=== PATIENT | female | born 1945 | race Caucasian/White ===

== ENCOUNTER → 2019-07-12 13:48 | Outpatient (CLI) | payer OTHER, SELFPAY ==
--- NOTE | 2019-07-12 13:49 | DI.CT.S_ITS ---
PROCEDURE: CT LUMBAR SPINE WO CON INDICATIONS: Hardware loosening status post fusion TECHNIQUE: Noncontrast 3 mm thick sections acquired from the T12 level to the sacrum. Sagittal and coronal reformats were constructed. For radiation dose reduction, the following was used: automated exposure control. COMPARISON: [facility], CT, T-SPINE WITH CONTRAST, 12/20/2014, 11:08. [facility], XA, SPINE INJ FOR CT MYELOGRAM XA, 12/20/2014, 10:34. FINDINGS: Image quality: Excellent. Bones: There is normal bony alignment. No acute vertebral body compression fractures. No suspicious lytic or blastic bony lesions. Central spinal caliber is of normal overall caliber. No pars defects. Note is made of a right-sided control device overlying the sacroiliac joint level on the right, with control leads extending cephalad and one of these leads can be seen entering the spinal canal at the dorsal midline seen centered on series 2 image 8. T12-L1: Mild degenerative disc height reduction is seen posteriorly, with very slight grade 1 retrolisthesis of T12 on L1. Mild facet osteoarthritis. L1-L2: Minimal degenerative disc height reduction posteriorly, without subluxation. Mild facet osteoarthritis. L2-L3: Appreciable and significant interval worsening of degenerative disc disease with grade 2 anterolisthesis having developed since 12/20/14 at this level. What appears to be a small degree of ostiolysis is associated with the intervertebral disc disease, where adjacent sclerosis involving the lower third of the vertebral body of L2 and the upper half of the vertebral body of L3 is present. An intervertebral disc prosthesis likely is present at this disc level. This represents the upper most aspect of a spinal fusion device comprised of transverse pedicle screws and vertical fixation rods bilaterally crossing L2-L3. Moderately severe to severe facet osteoarthritis. Dorsal spinal pain control electrode leads and control device as discussed. These are relatively poorly visualized by the current study but along the course of the leads a definite lead fracture is not seen. Only one of 2 leads can be seen entering the spinal canal, and the full course of these leads is not included in the study. L3-L4: The degenerative disc disease at this level is near severe with near [id number]-[id number] articulation between the adjacent endplates. Very slight anterolisthesis of L3 is present on L4, grade 1. Mild facet osteoarthritis. L4-L5: Degenerative disc disease is mild, subluxation is not present. Mild facet degeneration. L5-S1: Degenerative disc disease is moderately severe, with near [id number] articulation between adjacent endplates. No subluxation. Moderate facet osteoarthritis. Soft tissues: No retroperitoneal masses or hematomas. Visualized aorta is normal in caliber. IMPRESSION: The degenerative disc disease and facet osteoarthritis along the lumbosacral spine overall is moderately severe and most pronounced at L2-L3. Spinal and foraminal stenosis would be expected as a result. Multilevel radiculopathy also likely is present. Dictated by: Lui Ramirez M.D. on 07/12/2019 at 15:27 Approved by: Lui Ramirez M.D. on 07/12/2019 at 15:35
== END ==
PROVIDERS: PCP Family Medicine; Visit Provider Physical Medicine & Rehabilitation
DX: T84.218A Breakdown (mechanical) of internal fixation device of other bones, initial encounter (principal); M47.27 Other spondylosis with radiculopathy, lumbosacral region; M47.26 Other spondylosis with radiculopathy, lumbar region; M51.16 Intervertebral disc disorders with radiculopathy, lumbar region; M51.17 Intervertebral disc disorders with radiculopathy, lumbosacral region; M21.372 Foot drop, left foot; Z98.1 Arthrodesis status
CPT/HCPCS: 72131

== ENCOUNTER → 2019-09-01 10:38 | Outpatient (CLI) | payer OTHER, SELFPAY ==
--- NOTE | 2019-09-01 | DI.NM.S_ITS ---
PROCEDURE: NM BONE 3 PHASE RADIOPHARMACEUTICAL: 20 mCi Tc-99m MDP IV. INDICATIONS: Lumbar pseudarthrosis TECHNIQUE: Multiple bone scintigrams were obtained after intravenous injection of Tc-99m MDP, including flow, blood pool, and delayed images centered to the region of interest. COMPARISON: [facility], CT, CT LUMBAR SPINE WO CON, 07/12/2019, 13:51. [facility] [place], CR, XR LUMBAR SPINE 2 OR 3 VIEWS, 08/18/2019, 14:56. FINDINGS: A triple phase bone scan was obtained including flow, blood pool and delayed images. The flow and blood for images demonstrate normal vascularity. Delayed images demonstrate foci of increased uptake in lumbar spine, correlating with degenerative and postsurgical changes seen on radiographs and CT. The comparison CT also shows lucency around the right superior L2 pedicle, suspicious for loosening. IMPRESSION: 1. Foci of increased uptake in lumbar spine are consistent with degenerative and postsurgical changes. 2. There is lucency around the right L2 pedicular screw on the comparison CT, concerning for prosthesis loosening. Dictated by: Kaykay Galaviz M.D. on 09/01/2019 at 16:33 Approved by: Kaykay Galaviz M.D. on 09/01/2019 at 18:27
== END ==
PROVIDERS: Family Provider Family Medicine; PCP Family Medicine; Visit Provider Orthopaedic Surgery
DX: M96.0 Pseudarthrosis after fusion or arthrodesis (principal)
CPT/HCPCS: 78315; A9503

== ENCOUNTER → 2019-09-21 10:12 | Outpatient (CLI) | payer OTHER, SELFPAY ==
[2019-09-21 11:01] LABS: Add Manual Diff / Slide Review NO; Basophils Absolute Auto 100 /uL (0-100); Basophils Percent Auto 0.9 % (0-2); Eosinophils Absolute Auto 200 /uL (0-450); Eosinophils Percent Auto 3.7 % (2-4); Hematocrit 37.9 % (36-46); Hemoglobin 12.9 g/dL (12.0-16.0); Lymphocytes Absolute Auto 1800 /uL (1100-4500); Lymphocytes Percent Auto 29.2 % (25-40); Mean Corpuscular HGB Conc 33.9 % (30-36); Mean Corpuscular Hemoglobin 31.8 PG (26-34); Mean Corpuscular Volume 93.8 fL (80-100); Monocytes Absolute Auto 500 /uL (0-900); Monocytes Percent Auto 8.1 % (3-14); Neutrophils Absolute Auto 3600 /uL (1500-7000); Neutrophils Percent Auto 58.1 % (50-75); Platelet Count 330 X10^3/uL (150-400); Red Blood Cell Count 4.04 X10^6/uL (4.0-5.2); Red Cell Distribution Width 12.8 % (11.6-14.8); White Blood Cell Count 6.2 X10^3/uL (4.5-11.0)
[2019-09-21 11:16] LABS: Blood Urea Nitrogen 18 mg/dL (7-17)
== END ==
PROVIDERS: Family Provider Family Medicine; PCP Family Medicine; Visit Provider Orthopaedic Surgery
DX: Z01.818 Encounter for other preprocedural examination (principal); Z01.812 Encounter for preprocedural laboratory examination; R79.89 Other specified abnormal findings of blood chemistry
CPT/HCPCS: 36415; 84520; 85025; 93005

== ENCOUNTER 2019-11-25 06:13 | Inpatient (IN) | payer MEDICARE, SELFPAY ==
[2019-10-25 08:10] VITALS: BMI 29.6
[2019-11-25] VITALS (16 sets, daily range): BP systolic 97–127; BP diastolic 53–76; PULSE 61–77; RESP 12–16; TEMP 35.5–36.5; O2SAT 92–97; BMI 29.6; BMI 28.8
--- NOTE | 2019-11-25 | DI.RAD.S_ITS ---
PROCEDURE: XR LUMBAR SPINE 2-3V INDICATIONS: L2-5 TLIF TECHNIQUE: 2 views of the lumbar spine were acquired. COMPARISON: None. FINDINGS: Bones: Digital acquisition imaging shows fusion procedure dorsally to have been performed crossing from L2-L5, and also a wide anterior intervertebral disc prosthesis appears present between L2 and L3 with a more conventional appearing cage disc prosthesis between L4 and L5. Soft tissues: Overlying bowel gas pattern is normal. No suspicious soft tissue calcifications. IMPRESSION: Normal alignment established postoperatively. Normal device positioning. Dictated by: Lui Ramirez M.D. on 11/25/2019 at 14:37 Approved by: Lui Ramirez M.D. on 11/25/2019 at 14:38
[2019-11-25] MEDS: LACTATED RINGERS 1,000 ML 42 ML IV ×3 (07:08→12:52)
--- NOTE | 2019-11-25 07:36 | PM.PREOP ---
Pre-operative Note Interval Note History & Physical reviewed/Exam performed by Physician: Yes Changes to H&P: No H&P completed within 30 days and has changed as indicated here:: We had a problem with her spinal cord stimulator not working, contact the rep, and just replaced the controller batteries and confirmed that it has been turned off. OK to proceed.
[2019-11-25] MEDS: MIDAZOLAM 2 MG/2 ML VIAL IV (07:43)
[2019-11-25] MEDS: CLINDAMYCIN 900 MG/50 ML PIGGYBACK 50 MG IV ×3 (07:45→23:44)
--- NOTE | 2019-11-25 07:46 | SUR.PREOP ---
Dr. Morales made aware of rings, sores to upper back, spinal stimulator. Dr. Morales worked with [employer] rep, stimulator off now per pt. Midazolam 2mg IV given per Dr. Benavides's instruction prior to pt leaving for OR.
--- NOTE | 2019-11-25 08:37 | SUR.OPER ---
Right lateral on padded OR table. Head on pillow, gel axillary roll, pillow to support left arm. Legs flexed, pillows between legs, gel pad under down leg and ankle. Multiple passes of 3 inch cloth tape across shoulder, hip, upper and lower legs to secure patient on OR table.
[2019-11-25] MEDS: VANCOMYCIN 1,000 MG VIAL 1000 MG TOP (09:06)
[2019-11-25] MEDS: SODIUM CHLORIDE 0.9% 1,000 ML, GENTAMICIN 80 MG IRR (09:07)
[2019-11-25] MEDS: BUPIVACAINE 0.5% (PF) 4 ML, MORPHINE-PF 4 MG, BUTORPHANOL 1 MG, fentaNYL 100 MCG INJ (09:41)
[2019-11-25] MEDS: THROMBIN (RECOMBINANT) 5,000 UNIT VIAL 5000 UNIT TOP (09:43)
[2019-11-25] MEDS: ACETAMINOPHEN IV 1,000 MG/100 ML VIAL 400 MG IV (13:00)
--- NOTE | 2019-11-25 13:15 | P.OP_ITS ---
Operative Date/Time/Diagnoses Date of procedure: 11/25/19 Time of procedure: 13:15 Pre-op diagnosis: Lumbar stenosis with radiculopathy Lumbar spondylolisthesis Lumbar pseudoarthrosis Procedure & Clinicians Procedure: L2-3 anterior cage removal L2-3 posterior screw removal L2-3 anterior instrumented fusion with cage L2-3 posterior instrumented fusion L4-5 TLIF (posterior/posterior interbody fusion) with cage L2, L3, L4, L5 screws Iliac crest bone graft aspirate Same procedure as scheduled: Yes Indications: [age] year old female with intractable pain from stenosis and pseudoarthrosis. They had failed conservative management and requested operative intervention. Risks and benefits of surgery were discussed and appropriate consents were obtained. Surgeon: Arthur Morales Research Programmer: Fredy Stover Anesthesia Type: General Operative Notes Findings: None Closure Type: primary Specimen(s): none sent Prosthetic devices, grafts, tissues, transplants, or devices: NuVasive MAS Reline screws and XLIF 15 deg cage Globus Rise cage Applied: catheter Estimated Blood Loss (mL): 200 Blood products transfused: none Procedure in detail: Patient was brought to the operating room and intubated on the table. Time-out was performed. They were then rolled over to the lateral decubitus position with the [id number]. Thhey were taped down in the correct position. X-rays were taken to confirm a true AP and lateral. Preoperative antibiotics were given. The left flank and back was prepped and draped in standard sterile fashion. We started with our posterior screw removal so that we would be able to mobilize anteriorly. Using fluoroscopy, we made 4 cm incisions on the back over her old L2 and L3 screws. Bovie used to come down to an dissect through the scar and muscle until we came down to the hardware. The screws were exposed. The screws were removed. The wounds were irrigated and loosely reapproximated. Using fluoroscopy, a 3 cm incision was made above the iliac crest. We bluntly dissected down with Metzenbaum scissors and split the 3 abdominal muscle layers. We dissected out the retroperitoneal space and using finger guidance, brought our 1st dilator down to the psoas muscle. Using neuromonitoring and fluoroscopy, we placed it through the psoas onto the L2-3 disc space in an anterior position and gradually pulled the dilator posteriorly along the disc space. We placed our guidewire and measured our depth for the retractor. We then dilated with the next 2 dilators and then placed our retractor over the dilators. Position was confirmed with fluoroscopy and the retractor was locked down to the bar. We opened up the retractor and checked with neuro monitoring. We then placed the niko and again checked with neuro monitoring. The retractor was opened fu rther and the ALL retractor was placed. An annulotomy was performed. We began using pituitaries to remove the disc tissue until we came down to her nonunion and old TLIF cage. This was loose but somewhat encased in bone. However there was a definite pseudarthrosis. We used a osteotome to break up some of the bony fragments. We continued working around until we were able to place a hook around the cage. It would not slide around forward. We then slid the hook between the endplate at and the cage and hooked it around into the cage and brought it up out of the disc space. We then prepped our disc with a Simon to go across and release the lateral annulus. We used box osteotome to remove the previous scar tissue and a ring curette to clear this out. We trialed and then placed a 15 degree XLIF Modulus titanium cage packed with Osteocel bone graft for the anterior fusion at L2-3. We were able to get very good correction of her lordosis as well as some listhesis correction. The wound was irrigated. The retractor was closed down and the Niko was removed. We removed the retractor under direct visualization to make sure there was no neurovascular or abdominal injury. Final x-rays were taken. The muscle fascia was closed. Superficial skin were closed. Sterile dressings were placed over her wounds. She was then rolled over onto the well-padded prone position on the Supa table. The posterior dressing was removed and the back was prepped and draped in the standard sterile fashion. We used fluoroscopy and extended our incisions down to L4 bilaterally. Bovie used to split the fascia. We then used neural monitoring and fluoroscopy to place our Jamshidi needles down the right pedicles of L2, L3, L4 and L5. We used a new screw path at L2 as the old screw had been anterior and superior. L3 with the same old hole and then new holes at the bottom 2 levels. These were changed to guidewires. We placed the screws at L4 and L5 and opened up the MAS retractor. We used Bovie to clear off the soft tissue from the lamina and out the gutters to expose the transverse processes. The processes were decorticated with a bur. We then brought in the microscope. A laminectomy was performed at L4-5 with a bur and Kerrison rongeurs. We carefully depressed the dura to reach to the opposite side and decompress the entire central canal. We cleared out the neural foramen. In the end the ball probe could be placed cephalad and caudally across to the opposite side in the foramen and everything was opened. We then retracted the dura medially and used bipolar for hemostasis. An annulotomy was performed. We then performed complete diskectomy with paddles, Etienne, curettes, and pituitaries. The Osteocel bone graft was placed into the disc space. We then placed our globus Rise cage and expanded under fluoroscopy. This completed the posterior interbody portion of the TLIF at L4-5. An epidural catheter was primed with 4mL of 0.5% bupivacaine, 100 mcg fentanyl, 4 mg Duramorph, 1 mg Stadol. The dura was depressed under the cephalad lamina with a ball probe and the epidural catheter was gently advanced 6 cm cephalad. The wound was copiously irrigated. We placed the heads on the screws. We then tapped and placed our screws at L2 and L3. We oversized with a 7.5 mm screw at L3. We then measured and placed a chandni and locked it down. A small stab incision was made over the PSIS and a Jamshidi needle was placed into the iliac crest and several mL of bone marrow was aspirated. This was mixed with our locally harvested bone graft as well as the remaining Osteocel and placed in the posterolateral gutter for fusion at L2-3 and L4-5. The fascia was closed. The epidural was injected without resistance and then the catheter was removed. We further closed over the fascia. We then went to the left side. We extended the incision. We used Bovie to split the fascia. We then percutaneously placed Jamshidi needles down the left pedicles of L4 and L5. We used the previous screw holes at L2 and L3. We tapped and then placed screws on the left pedicles of L2 through 5. We used over size 7.5 mm screws at L2 and L3. We placed our chandni and locked down. The wound was irrigated. The fascia was closed. Vancomycin powder was placed in the wound. The superficial skin were closed. Sterile dressing was placed. The patient was then rolled over, extubated, brought to the recovery room with no complications. Please note that throughout the surgery we took care not to Bovie on the spinal cord stimulator or stimulator wires and took care to keep them well protected throughout. Complications: none Post-operative Condition: stable Disposition: PACU Plan for aftercare: Inpatient. Up with PT.
[2019-11-25] MEDS: LORazepam 2 MG/ML INJ 0.25 MG IV (13:58)
[2019-11-25] MEDS: HYDROMORPHONE 2 MG INJ IV ×2 (13:58→14:09)
--- NOTE | 2019-11-25 15:32 | PC.NURSE ---
Addendum entered by Placido Gomez R.N. 11/25/19 15:47: LATE ENTRY. 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 Original Note: PATIENT TO RM [facility] FROM [facility]. IS SLEEPY BUT AROUSABLE, SLOW TO RESPOND TO QUESTIONS. HER RESPONSES ARE APPROPRIATE. SHE IS EXTREMELY PALE, BUT PER REPORT THIS IS HER BASELINE PRE-OP. VSS, NOW WITH SBP 98/ WILL NEED CLOSE MONITORING. TURNED PATIENT TO OBSERVE SURGICAL DRSG WITH PACU NURSE AT BEDSIDE. DRSG 100% SATURATED AND STARTING TO POOL UNDER TEGADERM. RE-INFORCED WITH ABD PADS X2 AND LARGE TEGADERM X4. SAT 92-94% ON 2L/NC. RR 14. UPPER AIRWAY CONGESTED WITH INSTRUCTION TO DEEP BREATHE AND COUGH. LIPS VERY PUFFY AND SWOLLEN, NO RESPIRATORY DISTRESS, NO STRIDOR, NO DIFFICULTY SWALLOWING SIPS OF ROSHAN ESTHER WITHOUT DIFFICULTY. RT CALLED TO COME ASSESS PATIENT AND WORK WITH PATIENT ON I.S. RT NOTIFIED THAT PATIENT HAD TO BE SUCTIONED OF SOME BILE BY ANESTHESIA DURING CASE. DRAWING HAND VIKASH, WILL NOTIFY DR. KLEIN OF DRSG SATURATION, AND ASK HIM TO RE-VISIT PATIENT AFTER HIS NEXT CASE. REPORT GIVEN TO SNOW, PRIMARY NURSE; LIZZIE TENORIO, AND SHAYNA, DAY SHIFT CHARGE NURSE. LIZZIE TENORIO CALLED DOWN TO [facility] TO REQUEST H&H, SPOKE WITH Filemon CAMARENA WHO CAME UP TO SEE PATIENT. RT HAS ASSESSED PATIENT.
[2019-11-25] MEDS: LACTATED RINGERS 1,000 ML 125 ML IV (15:50)
--- NOTE | 2019-11-25 16:13 | PT-IP ANOTE ---
checked with nurse and stated that pt is not ready for PT. stated that pt is not doing too well and will not be ready until tomorrow. will check on pt tomorrow.
[2019-11-25] MEDS: GABAPENTIN 600 MG TABLET PO ×2 (17:29→20:52)
[2019-11-25] MEDS: OXYCODONE IR 5 MG TABLET 10 MG PO (18:41)
--- NOTE | 2019-11-25 20:29 | PC.NURSE ---
Patient is somnolent and sleepy but arouse to voice of nurse. Patient arrived to floor shortly prior to Shift change. During bedside report it was noted that patient's surgical dressing was saturated and pooling under tegaderm. Day nurse re-inforced drg with ABD pad and mult. tegaderm drg. Shadow drainage was noted on reinforced dressing. Provider was made aware of soiled/saturated surgical drg. PACU nurse Jaylin came to patients room to assess drg. went back down to surg. and informed Dr. Morales of drg. condition and relayed suggestions from this nurse about inquiring to perform a H/H lab as patient appears to look VERY pale. No action to be taken per Dr. Morales, only change drg. PACU nurse Melinda arrived to floor after trans. patient to a more visible room. Melinda changed drg. in room and immediately drg. was starting to show shadow drainage on drg. provider is aware of this and states he will see her in AM and order h/h labs. B/p was slightly hypotensive, PACU nurse states she was having similar b/p readings in PACU. Patient is resting peacefully in room, 97% on 3L NC, call placed to RT for aggressive IS teaching and an eval. Patient's drg. was checked at 2039 and was noted to be saturated again but not leaking. will cont. to monitor and re-enforce as needed. Call light w/ in reach, bed in low pos and alarm active.
[2019-11-25] MEDS: SENNOSIDES 8.6 MG TABLET 17.2 MG PO (20:52)
[2019-11-25] MEDS: ATORVASTATIN 20 MG TABLET PO (20:52)
[2019-11-25] MEDS: DOCUSATE 100 MG CAPSULE PO (20:52)
[2019-11-25] MEDS: HYDROMORPHONE 0.5 MG INJ IV (20:52)
[2019-11-25] MEDS: DULOXETINE 30 MG CAPSULE PO (20:52)
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
[2019-11-26] VITALS (19 sets, daily range): BP systolic 98–133; BP diastolic 45–57; PULSE 64–85; RESP 15–16; TEMP 36.4–37.4; O2SAT 84–98
[2019-11-26] MEDS: LACTATED RINGERS 1,000 ML 125 ML IV ×2 (02:02→08:51)
[2019-11-26] MEDS: OXYCODONE IR 5 MG TABLET 10 MG PO ×3 (03:52→12:31)
[2019-11-26] MEDS: hydrOXYzine pamoate 25 MG CAPSULE PO (05:00)
[2019-11-26] MEDS: PANTOPRAZOLE 20 MG TABLET PO (05:00)
[2019-11-26] MEDS: LEVOTHYROXINE 100 MCG TABLET PO (05:00)
[2019-11-26] MEDS: HYDROMORPHONE 0.5 MG INJ 0.2 MG IV ×2 (05:00→15:11)
[2019-11-26 06:20] LABS: Hematocrit 29.8 % (36-46); Hemoglobin 10.3 g/dL (12.0-16.0)
--- NOTE | 2019-11-26 08:12 | PM.PNPO.1 ---
Subjective Subjective Date Patient Seen: 11/26/19 Time Patient Seen: 08:12 Interval history: She is doing very well. Pain is about a 5/10. The pain down her right leg is much better, now it's only numbness. Her dressing has been soaking through and has had to have been changed a few times. Exam Vital Signs (past 8 hours): - 11/26/19 01:00 11/26/19 04:54 11/26/19 07:00 Temperature 99.3 F 97.7 F 99.2 F Pulse Rate 72 76 71 Respiratory Rate 16 16 16 Blood Pressure 115/54 L 133/53 L 98/50 L Pulse Oximetry 94 93 98 Oxygen Delivery Method Nasal Cannula Oxygen Flow Rate 3 Const Orientation: alert and oriented x3 Back/Spine/Pelvis Other: Moderate drainage on right side of dressing. 5/5 motor both lower extremities except for old unchanged left footdrop. Objective Labs Result Diagrams: 11/26/19 05:45 Labs: Laboratory Results - last 24 hr 11/26/19 05:45 Hgb 10.3 L Hct 29.8 L Assessment & Plan Post-op Postoperative Procedures: Procedures Operation Date: 11/25/19 07:45 Actual Procedures Side Surgeon p L2-3 and L4-5 revision instrumented fusion w/hardware removal and reinstru w/bone graft Arthur Morales MD She is doing very well. Mobilize today with physical therapy. Still having drainage from the right side of her back. This was quite bloody yesterday but seems to be slowing down. Quality VTE Deep Vein Thrombosis/Pulmonary Embolism Present on Admission: No
[2019-11-26] MEDS: GABAPENTIN 600 MG TABLET PO ×3 (08:51→21:54)
[2019-11-26] MEDS: DULOXETINE 30 MG CAPSULE PO ×2 (08:51→21:54)
[2019-11-26] MEDS: DOCUSATE 100 MG CAPSULE PO (08:51)
[2019-11-26] MEDS: allopurinoL 100 MG TABLET PO (08:52)
[2019-11-26] MEDS: MULTIVITAMIN 1 TABLET 1 TAB PO (08:52)
--- NOTE | 2019-11-26 09:02 | CM.DANOTE ---
Addendum entered by Xiao Beth R.N. 11/26/19 10:02: Spoke to Hector at [facility]. They mentioned that P.T. could potentially see patient Thursday or Thursday. Sending over prog notes, and H&P, along with face sheet. Original Note: DCP: Case received, EMR reviewed and met with patient. Introduced self and role. Was able to meet with patient to obtain baseline history regarding activity level and living situation. DCP assessment completed with information currently available. Patient is a 74 year old female who admitted yesterday morning to the care of the orthopedic team. PCP: Dr. Slaughter. Payer: confirmed: [employer] Medicare. Patient came to the hospital for a surgical procedure. She had lumbar surgery cage removal of L2-3. Patiet has history of intractable pain from stenosis. According to H&P, patient does have history of bowel and bladder incontinence. Met with patient in her room. She is currently on oxygen, but confirmed with her that she is not on home oxygen. She is alert and oriented, sitting up in bed. She will be working with P.T. today. Confirmed with patient that she is independent, drives. Stated that she has not used any DME supplies, but is borrowing a walking stick from family. Confirmed that she lives alone, but has a friend named Cinthia Alfonso that will be helping her out around the house. Patient also stated that her daughter, Zaina, will be coming up from [place] to help her as well. She is also involved in her evangelical, and they will be also helping out with prepared meals. Spoke to Dr. Morales this morning and stated that patient will benefit from home health, since she does not want to go to custodial. He already signed face to face. Met again with patient, gave her Medicare Choice List, but she has no preference on agencies, for she is not familiar with any of them. Let her know that this case manage can check on agencies to see what their turn around time. [facility] is not available on weekends. Will send agency over H&P. It is noted that [facility] is on case management's calendar for this week. Will contact them. P:DCP to continue to follow. Will send information over to [facility], and will follow up with phone call. Xiao Beth RN/Skinning Machine Feeder
[2019-11-26 09:24] LABS: Alanine Aminotransferase 18 IU/L (<35)
--- NOTE | 2019-11-26 09:53 | PT.IIE ---
Current Diagnoses Postlaminectomy syndrome, not elsewhere classified (11/25/19) Unspecified fracture of unspecified lumbar vertebra, subsequent encounter for fracture with nonunion (11/25/19) Arthrodesis status (11/25/19) Surgery Performed Operation Date: 11/25/19 07:45 Actual Procedures p L2-3 and L4-5 revision instrumented fusion w/hardware removal and reinstru w/bone graft - Arthur Morales MD Surgical History (Last Updated 10/27/19 @ 14:08 by Dorothea Corbin RN) History of fusion of cervical spine (Acute) History of lumbar spinal fusion (Acute ~1988) History of lumbar spinal fusion (Acute 11/30/17) S/P epidural steroid injection (Acute ~01/2019) S/P insertion of spinal cord stimulator (Acute) Status post lumbar and lumbosacral fusion by anterior technique (Chronic) Medical History (Last Updated 10/27/19 @ 14:28 by Dorothea Corbin RN) Acid reflux (Acute) Acquired left foot drop (Chronic) Depression (Acute) Gout (Acute) HLD (hyperlipidemia) (Acute) HTN (hypertension) (Acute) Hypothyroid (Acute) Lumbosacral spondylosis with radiculopathy (Chronic) Tremor of both hands (Acute) Physical Therapy Inpatient Evaluation/Re-Eval M1 PT/OT-IP Prior Functional Status Start: 11/26/19 11:26 Freq: NEEDED Status: Active Protocol: Document 11/26/19 09:53 AB (Rec: 11/26/19 11:41 AB [id number]) Medical Review Prior Functional Status Medical History Reviewed Yes Communication able to make needs known Mobility and Gait pt stated that she is independent with all mobilities and ambulation without AD Social History Household Members none Living Arrangements Apartment/Condo Number of Floors (Floors) Two Floors Number of Stairs To Enter/Railing? 1 step to enter 13 steps with L rail ascendig to bedroom level. Home Environment Standard Height Toilet,Tub/ Shower Home Equipment Hand Held Shower Employment Status Retired Additional Social History Comment stated that there is a caregiver that can assist her but only for a few hours a day stated that her apartment is small and a FWW will not fit in M2 PT-IP Current Condition Start: 11/26/19 11:26 Freq: NEEDED Status: Active Protocol: Document 11/26/19 09:53 AB (Rec: 11/26/19 11:41 AB [id number]) Physical Therapy Current Condition Current Condition Evaluation Date 11/26/19 Treatment Diagnosis s/p L2-3 ant/post fusion, L4-5 TLIF; difficulty in walking Onset Date 11/25/2019 Precautions Lumbar Precautions Log Roll,No Twisting,Limit Bending,Lifting Restriction of 10 lbs,Gait Belt above Incisional Area M3 PT-IP Subjective Start: 11/26/19 11:26 Freq: NEEDED Status: Active Protocol: Document 11/26/19 09:53 AB (Rec: 11/26/19 11:41 AB [id number]) Subjective Physical Therapy Visit Type Type Initial Evaluation Visit Start Time 09:53 Visit Stop Time 10:38 Total Visit Minutes 45 Number of DIRECTOR OF CARDIOPULMONARY SERVICES Visits 0 Physical Therapy Visit Comments Patient Comments pt agreeable to do PT Therapy Pain Assessment Pain When Pain Assessed At Rest Pain Present Pain Present Pain Reported Location Right Leg Intensity 3 Scale Used Numeric (1 - 10) Pain Management Techniques Re-positioning,Timing of Activity with Medications M4 PT-IP Mobility and Gait Start: 11/26/19 11:26 Freq: NEEDED Status: Active Protocol: Document 11/26/19 09:53 AB (Rec: 11/26/19 11:41 AB [id number]) PT-Bed Mobility Assessment Rolling Type of Rolling Log Rolling Level of Assist Standby Assistance Supine to Sit Supine to Sit Standby Assistance PT-Transfer Assessment Sit to and From Stand Sit to and from Stand Minimal Assistance,Moderate Assistance,1 Person Assistance ,Use of Upper Extremities Equipment Transfer Assistive Device Gait Belt,Front Wheeled Walker Transfers Transfer Destination Chair Transfer Technique ambulated using FWW Transfer Ability Level of Assist Minimal Assistance,Moderate Assistance,1 Person Assistance ,Use of Upper Extremities Comments Mobility Comments reviewed back precautions and log roll bed mobility with pt. BP supine: 99/53. pt completed bed mobility supine to sit SBA and cues for techniques. no complaints of dizziness/headache/nausea. BP : 101/55. pt completed sit to stand min to mod A and cues. cued to activate L quads. pt with slight knee bend on L during standing. ambulated in room using FWW ~ 30 ft min to mod A and cues. pt agreed to sit up on chair. positioned on chair. call light and table placed within reach. Gait Assessment Gait Gait Assistance Required: Minimum Assistance,Moderate Assistance,1 Person Assist Distance (Feet) 30 Able to Maintain Weight Bearing Status Yes During Gait Assistive Devices Assistive Device Gait Belt,Front Wheeled Walker Orthotic/Prosthetic Devices or Brace: No Gait Deviations General Gait Pattern Antalgic,Decreased Stride Length,Decreased Feet Clearance Factors Limiting Gait Function Factors Limiting Gait Function Decreased Activity Tolerance, Decreased Strength,Limited Range of Motion,Pain,Poor Balance,Poor Safety Awareness PT-Balance Assessment Sitting Balance and Reactions Static Sitting Balance Ability Good Dynamic Sitting Balance Ability Good Standing Balance and Reactions Static Standing Balance Ability Fair Dynamic Standing Balance Ability Fair Device Used FWW M5 PT-IP Objective Assessments Start: 11/26/19 11:26 Freq: NEEDED Status: Active Protocol: Document 11/26/19 09:53 AB (Rec: 11/26/19 11:41 AB [id number]) Orientation Orientation/Cognition Level of Alertness Alert Orientation Name,Place,Situation Memory Description No Deficits Noted Gross Range of Motion Lower Extremity ROM Assessment Within Functional Limits Strength Comments Strength Comments RLE 4-/5 LLE: 3+/5; L foot drop Coordination Assessment Gross Coordination Gross Coordination WNL Sensation Assessment Sensation Gross Sensation WNL Muscle Tone Muscle Tone WNL Yes M6 PT-IP Treatment Start: 11/26/19 11:26 Freq: NEEDED Status: Active Protocol: Document 11/26/19 09:53 AB (Rec: 11/26/19 11:41 AB [id number]) Physical Therapy Treatment Education Education Provided Precautions,Weight Bearing Status,Post-Op Packet,Safety M7 PT-IP Assessment and Plan Start: 11/26/19 11:26 Freq: NEEDED Status: Active Protocol: Document 11/26/19 09:53 AB (Rec: 11/26/19 11:41 AB [id number]) PT Summary Assessment and Plan Potential Rehabilitation Potential Good Status of Condition at Evaluation Stable Summary Impairments Pain,ROM,Strength,Balance, Coordination,Sensation,Tone, Cognition,Bed Mobility, Transfers,Gait,Activity Tolerance Assessment Summary pt requiring min to mod A with mobility. pt stated that her house/condo is too small and FWW will not fit. pt has to at least be able to use her walking stick before she can go home. d/c plan depending on progress. Goals Bed Mobility Goal Independent Transfer Goal Independent,Cane,Front Wheeled Walker Gait Goal Independent,Cane,Front Wheel Walker Gait Distance 200 Other Goals up/down 1 step using SPC mod I up/down 13 steps using L rail and SPC mod I Days to Meet Goals 10 Frequency of Treatment Frequency Of Treatment Twice a Day Treatment Plan Physical Therapy Treatment Plan Bed Mobility Training,Transfer Training,Gait Training, Therapeutic Exercise,Balance Retraining,Post Op Education, Discharge Planning,Hot or Cold Pack,Neuromuscular Re-ed, Coordination Retraining,Manual Therapy Other Recommendations and Next Treatment ambulation, bed mobility Focus Recommendations To Nursing Amount of Assist Needed 1 Person Assist Discharge Recommendations PT Discharge Recommendations Home with Assistance,Home Health,SNF Rehab Equipment Needed for Home Before FWW if not safe with SPC Discharge Transportation Needs at Discharge Private Vehicle
[2019-11-26 09:57] LABS: Hepatitis B Surface Antigen NEGATIVE s/c (NEGATIVE)
[2019-11-26 10:24] LABS: HIV 1 & 2 Ab/Ag 4th Gen Combo NEGATIVE (NEGATIVE); Hep C Virus Ab w/Reflex Quant NEGATIVE s/c (NEGATIVE)
--- NOTE | 2019-11-26 11:49 | PC.NURSE ---
Addendum entered by Melina Quinonez R.N. 11/26/19 13:05: Patient back in bed and asleep. Room air sats 87%. Placed back on 2L per NC, sats now 92& asleep. Continuous pulse ox in place. Bed alarm on, light and belongings within reach. Original Note: Shift summary: Alert and oriented X3. Back to bed assisted by this clinical writer after sitting up in chair for a bit. SBA with FWW., gait steady and following spine precautions without much cueing. CMS+ and WNL except for numbness from R lateral knee to upper thigh. Dressing to mid low back saturated with sanguinous drainage. This clinical writer spoke with Dr Morales over the phone and let him know about her dressing- received order to remove old dressing and replace with pressure dressing. Old dressing removed, incisions well-approximated. Incision on R side of spine oozing blood. New pressure dressing applied as ordered. Patient C/O feeling like I might have a UTI... I was treating one at home w/ 3 different antibiotics before my surgery. Dr Morales made aware of urinary sx, received order to collect and send UA (plan to take sample from [place]). Patient weaned off O2, 92% on room air awake and at rest. Lungs CTA. HRR. Able to make needs known and calls appropriately. Light and belongings within reach, bed alarm on.
[2019-11-26 14:09] LABS: Bacteria Urine None Seen; RBC Urine None Seen (0-5/HPF); WBC Urine None Seen (0-5/HPF)
[2019-11-26 14:11] LABS: Appearance Urine UA CLEAR; Bilirubin Urine UA NEGATIVE (NEGATIVE); Color Urine UA YELLOW; Glucose Urine UA NEGATIVE (Negative); Ketones Urine UA NEGATIVE (NEGATIVE); Leukocyte Esterase Urine UA NEGATIVE (NEGATIVE); Nitrite Urine UA NEGATIVE (Negative); Occult Blood Urine UA NEGATIVE (Negative); Protein Urine UA NEGATIVE (Negative); Specific Gravity Urine UA 1.015 (1.000-1.035); Urobilinogen Urine UA 0.2 E.U./dL (0.2)
[2019-11-26 14:13] LABS: Culture Indicated Urine Cult Not Indicated; Urine Comments Microscopic Normal
--- NOTE | 2019-11-26 14:26 | PT.IPTN ---
Current Diagnoses Postlaminectomy syndrome, not elsewhere classified (11/25/19) Unspecified fracture of unspecified lumbar vertebra, subsequent encounter for fracture with nonunion (11/25/19) Arthrodesis status (11/25/19) Surgery Performed Operation Date: 11/25/19 07:45 Actual Procedures p L2-3 and L4-5 revision instrumented fusion w/hardware removal and reinstru w/bone graft - Arthur Morales MD Physical Therapy Treatment Note M2 PT-IP Current Condition Start: 11/26/19 11:26 Freq: NEEDED Status: Active Protocol: Document 11/26/19 09:53 AB (Rec: 11/26/19 11:41 AB [id number]) Physical Therapy Current Condition Current Condition Evaluation Date 11/26/19 Treatment Diagnosis s/p L2-3 ant/post fusion, L4-5 TLIF; difficulty in walking Onset Date 11/25/2019 Precautions Lumbar Precautions Log Roll,No Twisting,Limit Bending,Lifting Restriction of 10 lbs,Gait Belt above Incisional Area M3 PT-IP Subjective Start: 11/26/19 11:26 Freq: NEEDED Status: Active Protocol: Document 11/26/19 14:26 AB (Rec: 11/26/19 15:17 AB [id number]) Subjective Physical Therapy Visit Type Type Treatment Note Visit Start Time 14:26 Visit Stop Time 15:00 Total Visit Minutes 34 Number of JAMMER OPERATOR Visits 0 Physical Therapy Visit Comments Patient Comments pt agreeable to do PT Therapy Pain Assessment Pain When Pain Assessed At Rest Pain Present Pain Present Pain Reported Location Right Leg Scale Used pain scale not stated but stated some pain but not too bad Pain Management Techniques Timing of Activity with Medications M4 PT-IP Mobility and Gait Start: 11/26/19 11:26 Freq: NEEDED Status: Active Protocol: Document 11/26/19 14:26 AB (Rec: 11/26/19 15:17 AB [id number]) PT-Bed Mobility Assessment Rolling Type of Rolling Log Rolling Level of Assist Standby Assistance Supine to Sit Supine to Sit Standby Assistance Sit to Supine Sit to Supine Standby Assistance PT-Transfer Assessment Sit to and From Stand Sit to and from Stand Standby Assistance Equipment Transfer Assistive Device Gait Belt,Front Wheeled Walker Gait Assessment Gait Gait Assistance Required: Standby Assistance,Contact Guard Assist Distance (Feet) 100 Able to Maintain Weight Bearing Status Yes During Gait Assistive Devices Assistive Device Gait Belt,Straight Cane,Front Wheeled Walker Orthotic/Prosthetic Devices or Brace: No Gait Deviations General Gait Pattern Antalgic,Decreased Stride Length,Decreased Feet Clearance Factors Limiting Gait Function Factors Limiting Gait Function Decreased Activity Tolerance, Decreased Strength,Limited Range of Motion,Pain,Poor Balance Comments Gait Comments pt completed bed mobility supine to sit SBA. completed sit to stand SBA and ambulated with FWW ~ 100 ft SBA. assessed ambulation using SPC and completed ~ 100 ft SBA to CGA. pt requested to go back to bed afterwards. completed sit to supine SBA. positioned on bed. call light and table placed within reach. Stair Climbing Assessment Evaluation Level of Assist On Stairs Standby Assistance,1 Person Assistance Devices Stair Climbing Assistive Devices Left Railing Technique/Endurance Stair Climbing Direction Ascend and Descend Stair Climbing Technique Step to Step Number of Steps Climbed 3 Stair Climbing Set # Repetitions (reps) 2 Comments Stair Climbing Comments pt completed up/down 3 steps using L rail and SPC SBA. used both rails for descending steps. pt stated that she has the wall on the other side to hold on to . educated pt on safety and to hold on to L rail with B hands and completed steps again SBA . pt felt steadier with using B hands on rail. M5 PT-IP Objective Assessments Start: 11/26/19 11:26 Freq: NEEDED Status: Active Protocol: Document 11/26/19 09:53 AB (Rec: 11/26/19 11:41 AB [id number]) Orientation Orientation/Cognition Level of Alertness Alert Orientation Name,Place,Situation Memory Description No Deficits Noted Gross Range of Motion Lower Extremity ROM Assessment Within Functional Limits Strength Comments Strength Comments RLE 4-/5 LLE: 3+/5; L foot drop Coordination Assessment Gross Coordination Gross Coordination WNL Sensation Assessment Sensation Gross Sensation WNL Muscle Tone Muscle Tone WNL Yes M6 PT-IP Treatment Start: 11/26/19 11:26 Freq: NEEDED Status: Active Protocol: Document 11/26/19 14:26 AB (Rec: 11/26/19 15:17 AB [id number]) Physical Therapy Treatment Education Education Provided Precautions,Safety M7 PT-IP Assessment and Plan Start: 11/26/19 11:26 Freq: NEEDED Status: Active Protocol: Document 11/26/19 14:26 AB (Rec: 11/26/19 15:17 AB [id number]) PT Summary Assessment and Plan Potential Rehabilitation Potential Good Summary Impairments Pain,ROM,Strength,Balance, Cognition,Bed Mobility, Transfers,Gait,Activity Tolerance Progress Towards Goals Progressing Toward Goals Assessment Summary pt progressing with mobility and requiring SBA to CGA with ambulation using SPC. Pt stated that her house is small a FWW will not fit. Pt will have a caregiver that can assist her a few hours a day. pt may go home when medically stable. Goals Bed Mobility Goal Independent Transfer Goal Independent,Cane,Front Wheeled Walker Gait Goal Independent,Cane,Front Wheel Walker Gait Distance 200 Other Goals up/down 1 step using SPC mod I up/down 13 steps using L rail and SPC mod I Days to Meet Goals 10 Frequency of Treatment Frequency Of Treatment Twice a Day Treatment Plan Physical Therapy Treatment Plan Bed Mobility Training,Transfer Training,Gait Training, Therapeutic Exercise,Balance Retraining,Post Op Education, Discharge Planning,Hot or Cold Pack,Neuromuscular Re-ed, Coordination Retraining,Manual Therapy Other Recommendations and Next Treatment ambulation using SPC; stair Focus climbing Recommendations To Nursing Amount of Assist Needed 1 Person Assist Discharge Recommendations PT Discharge Recommendations Home with Assistance,Home Health Transportation Needs at Discharge Private Vehicle
[2019-11-26] MEDS: OXYCODONE IR 5 MG TABLET 15 MG PO ×2 (18:10→21:59)
[2019-11-26] MEDS: ATORVASTATIN 20 MG TABLET PO (21:54)
--- NOTE | 2019-11-26 23:42 | PC.NURSE ---
Evening Shift Note: Pt with dressing on lower back, reinforced on dayshift, drainage since placement of new dressing marked at intervals throughout the shift. Pt with serosang drainage on dressing. Pt mostly sleeping, awakens and reports pain /. Pt given oxycodone, 15 mg (home dose) twice this shift. Assisted with repositioning. Pt using call light appropriately, will continue to monitor, notify MD with changes.
[2019-11-27] MEDS: HYDROMORPHONE 0.5 MG INJ IV (00:09)
[2019-11-27] MEDS: OXYCODONE IR 5 MG TABLET 15 MG PO ×6 (02:46→22:53)
[2019-11-27 05:53] VITALS: BP 117/61; PULSE 84; RESP 16; TEMP 36.6; O2SAT 94
[2019-11-27] MEDS: LEVOTHYROXINE 100 MCG TABLET PO (06:32)
[2019-11-27] MEDS: PANTOPRAZOLE 20 MG TABLET PO (06:32)
--- NOTE | 2019-11-27 07:55 | PM.PNPO.1 ---
Subjective Subjective Date Patient Seen: 11/27/19 Time Patient Seen: 07:55 Interval history: She is more sore today, 05/04. However, she was doing well with physical therapy and standing and walking. Still requiring assist. Her dressing was changed yesterday afternoon. Exam Vital Signs (past 8 hours): - 11/27/19 05:53 Temperature 97.9 F Pulse Rate 84 Respiratory Rate 16 Blood Pressure 117/61 Pulse Oximetry 94 Oxygen Delivery Method Nasal Cannula Oxygen Flow Rate 1.5 Const Orientation: alert and oriented x3 Back/Spine/Pelvis Other: 5/5 motor both lower extremities except for old left foot drop. Dressing saturated Objective Labs Result Diagrams: 11/26/19 05:45 Labs: Laboratory Results - last 24 hr 11/26/19 11/26/19 11/26/19 05:45 05:45 13:50 ALT 18 Urine Color Yellow Urine Appearance Clear Urine pH 6.0 Ur Specific [place] 1.015 Urine Protein Negative Urine Glucose (UA) Negative Urine Ketones Negative Urine Occult Blood Negative Urine Nitrate Negative Urine Bilirubin Negative Urine Urobilinogen 0.2 Ur Leukocyte Esterase Negative Urine RBC None seen Urine WBC None seen Urine Bacteria None seen Ur Culture Indicated? Cult not indicated Micro UA Comment Microscopic normal Hep Bs Antigen Negative Hepatitis C Antibody Negative HIV 1&2 Ab/P24 Ag 4thGn Negative Assessment & Plan Post-op Postoperative Procedures: Procedures Operation Date: 11/25/19 07:45 Actual Procedures Side Surgeon p L2-3 and L4-5 revision instrumented fusion w/hardware removal and reinstru w/bone graft Arthur Morales MD urinalysis looks clean. She is doing well. The drainage is still present but it's slowing down compared to the 1st day. Change dressing. Mobilize today with PT. Quality VTE Deep Vein Thrombosis/Pulmonary Embolism Present on Admission: No
--- NOTE | 2019-11-27 07:57 | PM.DS.1 ---
History of Present Illness History of Present Illness Date Patient Seen: 11/28/19 Time Patient Seen: 07:42 Chief complaint: [id number] Narrative: 74-year-old female with severe back pain and right leg pain. She has a history of an old lumbar fusion many years ago. She had another lumbar fusion in [place] at L2-3 over a year ago. She never did well after this. She was found to have a pseudoarthrosis and kyphosis. It was felt she could benefit from a revision instrumentation and revision fusion for her nonunion. Discharge Providers Provider Date of admission: 11/25/19 06:13 Discharge Date: 11/28/19 Primary care physician: Arthur Slaughter DO Consults: 11/25/19 15:29 Consult to Occupational Therapy Evaluate & Treat Comment: Physician Instructions: Evaluate and treat Consult to Physical Therapy Evaluate & Treat Comment: Physician Instructions: Evaluate and Treat 11/26/19 08:34 Consult to LINING INSERTER - Learning Disabilities Specialist Routine Comment: home health 11/26/19 13:04 Consult to Respiratory Therapy Evaluate & Treat Comment: Physician Instructions: Evaluate and treat Discharge provider: Arthur Morales MD Summary Hospital Course Discharge Diagnosis: Lumbar stenosis with radiculopathy Lumbar spondylolisthesis Lumbar kyphosis Lumbar fusion nonunion Hospital Course: She was brought to the operating room on 11/25/19 where she underwent posterior removal of her L2-3 screws, anterior removal over L2-3 TLIF cage, change number operator to a 15 degree anterior cage, and then a L4-5 TLIF with instrumentation now from L2 through 5. Postoperatively she had a fair amount of drainage from the right-sided incision that this began slowing down and finally stopped by the date of discharge. She mobilized with physical therapy and her pain was gradually brought under control with oral medications. She had some urinary irritation but a urinalysis did not show any sign of infection, she has had UTIs in the past. Overall, she was very pleased. She can walk upright and her pain is tremendously better than had been preoperatively. Status at Discharge Cognitive/behavioral status at discharge: oriented Functional status at discharge: uses cane/walker Overall status at discharge: patient is progressing back to baseline Exam Vital Signs (past 8 hours): - 11/27/19 05:53 Temperature 97.9 F Pulse Rate 84 Respiratory Rate 16 Blood Pressure 117/61 Pulse Oximetry 94 Oxygen Delivery Method Nasal Cannula Oxygen Flow Rate 1.5 Const Orientation: alert and oriented x3 Back/Spine/Pelvis Other: CDI. 5/5 motor both lower extremities except for old longstanding left footdrop. Objective Labs Result Diagrams: 11/26/19 05:45 Labs: Laboratory Results - last 24 hr 11/26/19 11/26/19 11/26/19 05:45 05:45 13:50 ALT 18 Urine Color Yellow Urine Appearance Clear Urine pH 6.0 Ur Specific [place] 1.015 Urine Protein Negative Urine Glucose (UA) Negative Urine Ketones Negative Urine Occult Blood Negative Urine Nitrate Negative Urine Bilirubin Negative Urine Urobilinogen 0.2 Ur Leukocyte Esterase Negative Urine RBC None seen Urine WBC None seen Urine Bacteria None seen Ur Culture Indicated? Cult not indicated Micro UA Comment Microscopic normal Hep Bs Antigen Negative Hepatitis C Antibody Negative HIV 1&2 Ab/P24 Ag 4thGn Negative Discharge Plan Discharge Plan Patient Disposition: Home Discharge comment: Follow-up 1.5 weeks Discharge orders & Medications Prescriptions: New docusate sodium [DOK] 100 mg Capsule 100 mg PO BID PRN (Reason: constipation) Qty: 30 RF: 0 hydroxyzine pamoate 25 mg Capsule 25 mg PO Q4HR PRN (Reason: spasms) Qty: 20 RF: 0 oxycodone 5 mg tablet See Rx Instructions .ROUTE .COMPLEX PRN (Reason: pain) Qty: 60 RF: 0 Continued duloxetine [Cymbalta] 30 mg Capsule,Delayed Release(Dr/Ec) 30 mg PO BID RF: 0 atorvastatin 20 mg Tablet 20 mg PO BEDTIME RF: 0 multivitamin Capsule 1 cap PO DAILY RF: 0 Excedrin Extra Strength 250-250-65 mg Tablet 2 tab PO DAILY RF: 0 levothyroxine 100 mcg Capsule 100 mcg PO DAILY RF: 0 allopurinol 100 mg tablet 100 mg PO DAILY RF: 0 oxycodone 15 mg tablet 15 mg PO QID PRN (Reason: Pain) RF: 0 omeprazole 20 mg capsule,delayed release(DR/EC) 20 mg PO DAILY RF: 0 gabapentin 600 mg tablet 600 mg PO TID RF: 0 losartan 100 mg tablet 100 mg PO DAILY RF: 0 amlodipine 10 mg tablet 10 mg PO DAILY RF: 0 Follow up/Referrals: Arthur Slaughter DO [Primary Care Provider] - Discharge Health Status Multidrug resistant organism: No MDRO Diet/Activity/Treatments Diet: Diet as Tolerated Activity: Limited bend twist lift, 10 lb maximum Skin/Wound/Dressing Care Report to your healthcare provider any signs of infection, such as:: chills, fever, night sweats, increased pain, unusual drainage and unusual redness Dressing: May change dressing and shower on postoperative day 5., Thursday Visit Report/Discharge Packet Instructions: DI for Laminectomy, DI for Prescription Opioid Use, DI for Lateral Lumbar Interbody Fusion Stand Alone Forms: Surgery Discharge Discharge Data Primary Care Provider: Arthur Slaughter VTE Deep Vein Thrombosis/Pulmonary Embolism Present on Admission: No
[2019-11-27] MEDS: DOCUSATE 100 MG CAPSULE PO ×2 (08:26→20:13)
[2019-11-27] MEDS: GABAPENTIN 600 MG TABLET PO ×3 (08:26→20:13)
[2019-11-27] MEDS: MULTIVITAMIN 1 TABLET 1 TAB PO (08:27)
[2019-11-27] MEDS: DULOXETINE 30 MG CAPSULE PO ×2 (08:27→20:13)
[2019-11-27] MEDS: allopurinoL 100 MG TABLET PO (08:28)
[2019-11-27 09:00] VITALS: BP 107/56; PULSE 81; RESP 18; TEMP 36.6; O2SAT 96
--- NOTE | 2019-11-27 09:09 | OT.IP.EVAL ---
Current Diagnoses Postlaminectomy syndrome, not elsewhere classified (11/25/19) Unspecified fracture of unspecified lumbar vertebra, subsequent encounter for fracture with nonunion (11/25/19) Arthrodesis status (11/25/19) Surgery Performed Operation Date: 11/25/19 07:45 Actual Procedures p L2-3 and L4-5 revision instrumented fusion w/hardware removal and reinstru w/bone graft - Arthur Morales MD Past Medical History (Last Updated 10/27/19 @ 14:28 by Dorothea Corbin RN) Acid reflux (Acute) Acquired left foot drop (Chronic) Depression (Acute) Gout (Acute) HLD (hyperlipidemia) (Acute) HTN (hypertension) (Acute) Hypothyroid (Acute) Lumbosacral spondylosis with radiculopathy (Chronic) Tremor of both hands (Acute) Surgical History (Last Updated 10/27/19 @ 14:08 by Dorothea Corbin RN) History of fusion of cervical spine (Acute) History of lumbar spinal fusion (Acute ~1988) History of lumbar spinal fusion (Acute 11/30/17) S/P epidural steroid injection (Acute ~01/2019) S/P insertion of spinal cord stimulator (Acute) Status post lumbar and lumbosacral fusion by anterior technique (Chronic) Occupational Therapy Inpatient Evaluation/Re-Eval M1 PT/OT-IP Prior Functional Status Start: 11/26/19 11:26 Freq: NEEDED Status: Active Protocol: Document 11/27/19 14:19 CGR (Rec: 11/27/19 14:36 CGR [email or web address]) Medical Review Prior Functional Status Medical History Reviewed Yes Communication able to make needs known Mobility and Gait pt stated that she is independent with all mobilities and ambulation with a walking stick Activities of Daily Living and IADL's Pt was IND in all ADLs Social History Household Members none Living Arrangements Apartment/Condo Number of Floors (Floors) Two Floors Number of Stairs To Enter/Railing? 1 step to enter 13 steps with L rail ascendig to bedroom level. Home Environment Standard Height Toilet,Tub/ Shower Home Equipment Hand Held Shower Employment Status Retired Additional Social History Comment stated that there is a caregiver that can assist her but only for a few hours a day stated that her apartment is small and a FWW will not fit in. She uses a walking stick at baseline. M2 OT-IP Current Condition Start: 11/27/19 14:18 Freq: Status: Active Protocol: Document 11/27/19 14:19 CGR (Rec: 11/27/19 14:36 CGR [email or web address]) Occupational Therapy Current Condition Current Condition Evaluation Date 11/27/19 Treatment Diagnosis L2-5 revision, removal of hardware and bone graft Diagnosis Onset Date 11/25/19 Post Operative Precautions Lumbar Precautions Log Roll,No Twisting,Limit Bending,Lifting Restriction of 10 lbs,Gait Belt above Incisional Area M3 OT- IP Subjective and Pain Start: 11/27/19 14:18 Freq: Status: Active Protocol: Document 11/27/19 14:19 CGR (Rec: 11/27/19 14:36 CGR [email or web address]) OT- Subjective Occupational Therapy Visit Type Type Initial Evaluation Visit Start Time 08:39 Visit Stop Time 09:09 Total Visit Minutes 30 OT Pain Assessment Pain When Pain Assessed At Rest Pain Present Pain Present Pain Reported Location Lower Back Intensity 7 Scale Used Numeric (1 - 10) Management Techniques Distraction,Modification of Treatment,Re-positioning, Timing of Activity with Medications M4 OT- IP ADL's Start: 11/27/19 14:18 Freq: Status: Active Protocol: Document 11/27/19 14:19 CGR (Rec: 11/27/19 14:36 CGR [email or web address]) OT [id number] General Evaluation Self-Feeding Ability Independent Comments OT Self-Feeding Comments Pt eating breakfast when OT entered. OT ADL-Grooming General Evaluation Grooming Ability Standby Assistance Areas Needing Assistance Retrieving/Set-up of Grooming Items,Combing/Brushing Hair, Face Washing Comments OT Grooming Comments Standing at sink and completed seated in chair d/t feeling shaky OT ADL-Oral Care General Eval Oral Care Ability Standby Assistance Areas of Assistance Brushing Teeth Comments Oral Care Comments Standing at sink OT ADL-Dressing General Eval Lower Body Dressing Ability Contact Guard Assistance Areas Needing Assistance Socks Comments OT Dressing Comments Pt donned socks seated EOB without need for DME OT ADL-Toileting Comments OT Toileting Comments Not performed, pt with eckert OT ADL-Bathing Comments OT Bathing Comments Not performed in this session. M5 OT- IP IADL's Start: 11/27/19 14:18 Freq: Status: Active Protocol: Document 11/27/19 14:19 CGR (Rec: 11/27/19 14:36 CGR [email or web address]) OT-Instrumental Activities of Daily Living Deficits IADL Deficits Identified Deficits Home Safety Awareness Awareness of Need for Assistance at Home Decreased Awareness Ability to Problem Solve Emergency Able to Problem Solve Situations Medication Management Medication Management No Deficits Identified Money Management Money Management No Deficits Identified Meal Preparation Meal Preparation No Deficits Identified M6 OT- IP Functional Cognition Start: 11/27/19 14:18 Freq: Status: Active Protocol: Document 11/27/19 14:19 CGR (Rec: 11/27/19 14:36 CGR [email or web address]) Cognitive Factors Limiting Selfcare Function Cognitive Ability Level of Alertness Alert Patient Orientation Name,Age,Birthday,Month,Date, Year,Day of Week,Place, Situation Attention Span Ability Capable of Focused Attention, Capable of Sustained Attention Ability to Follow Commands Able to Follow Multi-Step Commands Memory Description No Deficits Noted Safety Awareness No Deficits Noted Problem Solving Ability No deficits Noted Cognitive Comments Cognitive Assessment Comments Pt may benefit from cog assessment if agreeable. OT- Vision and Hearing OT- Hearing Assessment OT- Hearing Assessment WFL OT- Vision Assessment Visual Acuity Glasses All The Time Visual Attentiveness WFL Occular Pursuits WFL Visual Convergence WFL Visual Anthony WFL M7 OT- IP Mobility and Balance Start: 11/27/19 14:18 Freq: Status: Active Protocol: Document 11/27/19 14:19 CGR (Rec: 11/27/19 14:36 CGR [email or web address]) OT- Bed Mobility Assessment Rolling Type of Rolling Log Rolling,Roll to Left Level of Assistance Contact Guard Assistance Supine to Sit Supine to Sit Assist Standby Assistance Sit to Supine Sit to Supine Assist Standby Assistance Scooting Scooting to Edge of Bed Standby Assistance OT-Transfer Assessment Transfers Transfer Ability Contact Guard Assistance Technique Transfer Destination Bed,Chair Transfer Technique Stand Step Pivot Devices Transfer Assistive Devices Gait Belt,Front Wheeled Walker Comments Mobility Comments Mobiliyt from bed to sink to chair. OT- Balance Assessment Sitting Balance and Reactions Static Sitting Balance Ability Normal Dynamic Sitting Balance Ability Good M8 OT- IP Objective Assessments Start: 11/27/19 14:18 Freq: Status: Active Protocol: Document 11/27/19 14:19 CGR (Rec: 11/27/19 14:36 CGR [email or web address]) OT Gross Range of Motion Upper Extremity Range of Motion Assessment Within Functional Limits OT Strength Upper Extremity Strength Assessment Within Functional Limits Comments Strength Comments Grossly 4/5 OT- Coordination Assessment Upper Extremity Finger to Nose Test Within Functional Limits Finger Tapping Test Within Functional Limits OT-Muscle Tone Assessment Muscle Tone WNL Yes OT Sensation Assessment Edema Edema Absent M9 OT- IP Assessment and Plan Start: 11/27/19 14:18 Freq: Status: Active Protocol: Document 11/27/19 14:19 CGR (Rec: 11/27/19 14:36 CGR [email or web address]) OT Summary Assessment and Plan Potential Rehabilitation Potential Excellent Analytic Complexity at Evaluation Low Summary OT Impairments Pain,Balance,Functional Mobility,Toileting,Bathing, Toilet Transfers,Shower Transfers,Activity Tolerance Progress Towards Goals Slow Progress due to Pain Assessment Summary Pt presents as a low complexity evaluation s/p L2-5 TLIF. Pt may benefit from formal cog assessment if agreeable. Pt presents with deficits d/t pain at this time . Pt needed reminders of back precautions throughout session . SNF vs home alone. Only bathroom in pt's home is on the second floor. Goals Grooming Goal Independent Dressing Goal Independent Toileting Goal Independent Bathing Goal Independent Toilet Transfer Goal Independent Shower Transfer Goal Independent Days to Meet Goals 2 Frequency of Treatment Frequency Of Treatment Once a Day Treatment Plan OT Treatment Plan ADL Training,Functional Mobility,Patient/Family Education,Discharge Planning Other Treatment Recommendations and Next cog assessment, endurance, Treatment Focus shower. Discharge Recommendations OT Discharge Recommendations Home with Assistance,SNF Rehab Other Discharge Recommendations SNF vs home with assist. Pt does not have a bathroom on the first floor. Home Equipment Needs shower chair Transportation Needs at Discharge Private Vehicle
--- NOTE | 2019-11-27 11:19 | PT.IPTN ---
Current Diagnoses Postlaminectomy syndrome, not elsewhere classified (11/25/19) Unspecified fracture of unspecified lumbar vertebra, subsequent encounter for fracture with nonunion (11/25/19) Arthrodesis status (11/25/19) Surgery Performed Operation Date: 11/25/19 07:45 Actual Procedures p L2-3 and L4-5 revision instrumented fusion w/hardware removal and reinstru w/bone graft - Arthur Morales MD Physical Therapy Treatment Note M2 PT-IP Current Condition Start: 11/26/19 11:26 Freq: NEEDED Status: Active Protocol: Document 11/26/19 09:53 AB (Rec: 11/26/19 11:41 AB [id number]) Physical Therapy Current Condition Current Condition Evaluation Date 11/26/19 Treatment Diagnosis s/p L2-3 ant/post fusion, L4-5 TLIF; difficulty in walking Onset Date 11/25/2019 Precautions Lumbar Precautions Log Roll,No Twisting,Limit Bending,Lifting Restriction of 10 lbs,Gait Belt above Incisional Area M3 PT-IP Subjective Start: 11/26/19 11:26 Freq: NEEDED Status: Active Protocol: Document 11/27/19 11:19 CLB (Rec: 11/27/19 13:04 CLB [id number]) Subjective Physical Therapy Visit Type Type Treatment Note Visit Start Time 11:19 Visit Stop Time 11:35 Total Visit Minutes 16 Physical Therapy Visit Comments Patient Comments pt agreeable to do PT Therapy Pain Assessment Pain When Pain Assessed At Rest Pain Present Pain Present Pain Reported Location Right Leg Intensity 7 Pain Management Techniques Timing of Activity with Medications M4 PT-IP Mobility and Gait Start: 11/26/19 11:26 Freq: NEEDED Status: Active Protocol: Document 11/27/19 11:19 CLB (Rec: 11/27/19 13:04 CLB [id number]) PT-Bed Mobility Assessment Rolling Type of Rolling Log Rolling Level of Assist Standby Assistance Supine to Sit Supine to Sit Standby Assistance Sit to Supine Sit to Supine Standby Assistance PT-Transfer Assessment Sit to and From Stand Sit to and from Stand Standby Assistance Equipment Transfer Assistive Device Gait Belt,Front Wheeled Walker Transfers Transfer Destination Bed Transfer Ability Level of Assist Standby Assistance,Contact Guard Assistance Comments Mobility Comments Pt in bed on left sidelying upon arrival. Pt performed supine to sit SBA for sidelying position. Pt stood requiring CGA. After ambulation in [place] pt was able to perform reverse log roll to back then repositioned herself with roll to left, pillow was placed between pt's legs and behind back for comfort and proper spine alignment. Pt refused SCD's, pt left with call light and all other needs within reach and bed alarm on. Gait Assessment Gait Gait Assistance Required: Standby Assistance,Contact Guard Assist Distance (Feet) 220 Able to Maintain Weight Bearing Status Yes During Gait Assistive Devices Assistive Device Gait Belt,Front Wheeled Walker Orthotic/Prosthetic Devices or Brace: No Gait Deviations General Gait Pattern Antalgic,Decreased Stride Length,Decreased Feet Clearance Factors Limiting Gait Function Factors Limiting Gait Function Decreased Activity Tolerance, Decreased Strength,Limited Range of Motion,Pain,Poor Balance Comments Gait Comments Pt ambulated in [place] ~220ft with CGA, pt required cues to prevent pt from getting to close to objects in [place] on left side (wall/computers on wheels). M5 PT-IP Objective Assessments Start: 11/26/19 11:26 Freq: NEEDED Status: Active Protocol: Document 11/26/19 09:53 AB (Rec: 11/26/19 11:41 AB [id number]) Orientation Orientation/Cognition Level of Alertness Alert Orientation Name,Place,Situation Memory Description No Deficits Noted Gross Range of Motion Lower Extremity ROM Assessment Within Functional Limits Strength Comments Strength Comments RLE 4-/5 LLE: 3+/5; L foot drop Coordination Assessment Gross Coordination Gross Coordination WNL Sensation Assessment Sensation Gross Sensation WNL Muscle Tone Muscle Tone WNL Yes M6 PT-IP Treatment Start: 11/26/19 11:26 Freq: NEEDED Status: Active Protocol: Document 11/26/19 14:26 AB (Rec: 11/26/19 15:17 AB [id number]) Physical Therapy Treatment Education Education Provided Precautions,Safety M7 PT-IP Assessment and Plan Start: 11/26/19 11:26 Freq: NEEDED Status: Active Protocol: Document 11/27/19 11:19 CLB (Rec: 11/27/19 13:04 CLB [id number]) PT Summary Assessment and Plan Potential Rehabilitation Potential Good Summary Impairments Pain,ROM,Strength,Balance, Cognition,Bed Mobility, Transfers,Gait,Activity Tolerance Assessment Summary Pt increased ambulation with FWW as pt had c/o pain 05/04 but will continue to work with pt on ambulating with SPC as pt states she will only have room at home to use walking stick. Pt is SBA for bed mobilty and CGA for transfers. Goals Bed Mobility Goal Independent Transfer Goal Independent,Cane,Front Wheeled Walker Gait Goal Independent,Cane,Front Wheel Walker Gait Distance 200 Other Goals up/down 1 step using SPC mod I up/down 13 steps using L rail and SPC mod I Days to Meet Goals 10 Frequency of Treatment Frequency Of Treatment Twice a Day Treatment Plan Physical Therapy Treatment Plan Bed Mobility Training,Transfer Training,Gait Training, Therapeutic Exercise,Balance Retraining,Post Op Education, Discharge Planning,Hot or Cold Pack,Neuromuscular Re-ed, Coordination Retraining,Manual Therapy Other Recommendations and Next Treatment ambulation using SPC; stair Focus climbing Recommendations To Nursing Amount of Assist Needed 1 Person Assist Discharge Recommendations PT Discharge Recommendations Home with Assistance,Home Health Equipment Needed for Home Before FWW if not safe with SPC Discharge Transportation Needs at Discharge Private Vehicle
[2019-11-27 13:00] VITALS: BP 114/62; PULSE 80; RESP 18; TEMP 36.6; O2SAT 96
--- NOTE | 2019-11-27 13:28 | PT.IPTN ---
Current Diagnoses Postlaminectomy syndrome, not elsewhere classified (11/25/19) Unspecified fracture of unspecified lumbar vertebra, subsequent encounter for fracture with nonunion (11/25/19) Arthrodesis status (11/25/19) Surgery Performed Operation Date: 11/25/19 07:45 Actual Procedures p L2-3 and L4-5 revision instrumented fusion w/hardware removal and reinstru w/bone graft - Arthur Morales MD Physical Therapy Treatment Note M2 PT-IP Current Condition Start: 11/26/19 11:26 Freq: NEEDED Status: Active Protocol: Document 11/26/19 09:53 AB (Rec: 11/26/19 11:41 AB [id number]) Physical Therapy Current Condition Current Condition Evaluation Date 11/26/19 Treatment Diagnosis s/p L2-3 ant/post fusion, L4-5 TLIF; difficulty in walking Onset Date 11/25/2019 Precautions Lumbar Precautions Log Roll,No Twisting,Limit Bending,Lifting Restriction of 10 lbs,Gait Belt above Incisional Area M3 PT-IP Subjective Start: 11/26/19 11:26 Freq: NEEDED Status: Active Protocol: Document 11/27/19 13:28 CLB (Rec: 11/27/19 14:13 CLB [id number]) Subjective Physical Therapy Visit Type Type Treatment Note Visit Start Time 13:28 Visit Stop Time 13:46 Total Visit Minutes 18 Number of OPERATOR Visits 2 Physical Therapy Visit Comments Patient Comments pt agreeable to do PT Therapy Pain Assessment Pain When Pain Assessed During Mobility Pain Present Pain Present Pain Reported Location Right Leg Intensity 7 Pain Management Techniques Timing of Activity with Medications M4 PT-IP Mobility and Gait Start: 11/26/19 11:26 Freq: NEEDED Status: Active Protocol: Document 11/27/19 13:28 CLB (Rec: 11/27/19 14:13 CLB [id number]) PT-Bed Mobility Assessment Rolling Type of Rolling Log Rolling Level of Assist Standby Assistance Supine to Sit Supine to Sit Standby Assistance Sit to Supine Sit to Supine Standby Assistance PT-Transfer Assessment Sit to and From Stand Sit to and from Stand Standby Assistance Equipment Transfer Assistive Device Gait Belt,Straight Cane Transfers Transfer Destination Bed Transfer Ability Level of Assist Standby Assistance,Contact Guard Assistance Comments Mobility Comments Pt in bed on left sidelying upon arrival, Pt required SBA for bed mobility and CGA for sit-stand. After ambulation and stair training pt returned to bed sidelying on left with call light and all needs within reach, bed alarm on, refused SCD's. Gait Assessment Gait Gait Assistance Required: Standby Assistance,Contact Guard Assist Distance (Feet) 100 Able to Maintain Weight Bearing Status Yes During Gait Assistive Devices Assistive Device Gait Belt,Front Wheeled Walker Orthotic/Prosthetic Devices or Brace: No Gait Deviations General Gait Pattern Antalgic,Decreased Stride Length,Decreased Feet Clearance Factors Limiting Gait Function Factors Limiting Gait Function Decreased Activity Tolerance, Decreased Strength,Limited Range of Motion,Pain,Poor Balance Comments Gait Comments Pt ambulated in [place] requiring CGA with use of SPC as pt states she uses walking stick at home and does not have room in her home for a FWW. Pt has difficulty sequencing recipricol step and cane and would be safer with FWW. Pt with decreased step length and foot clearance with use of SPC. Stair Climbing Assessment Evaluation Level of Assist On Stairs Standby Assistance,1 Person Assistance Devices Stair Climbing Assistive Devices Left Railing Technique/Endurance Stair Climbing Direction Ascend and Descend Stair Climbing Technique Step to Step Number of Steps Climbed 3 Stair Climbing Set # Repetitions (reps) 2 Comments Stair Climbing Comments pt climbed up/down 3 steps using L rail to go up stairs then used both hand on rail to come down steps. M5 PT-IP Objective Assessments Start: 11/26/19 11:26 Freq: NEEDED Status: Active Protocol: Document 11/26/19 09:53 AB (Rec: 11/26/19 11:41 AB [id number]) Orientation Orientation/Cognition Level of Alertness Alert Orientation Name,Place,Situation Memory Description No Deficits Noted Gross Range of Motion Lower Extremity ROM Assessment Within Functional Limits Strength Comments Strength Comments RLE 4-/5 LLE: 3+/5; L foot drop Coordination Assessment Gross Coordination Gross Coordination WNL Sensation Assessment Sensation Gross Sensation WNL Muscle Tone Muscle Tone WNL Yes M6 PT-IP Treatment Start: 11/26/19 11:26 Freq: NEEDED Status: Active Protocol: Document 11/26/19 14:26 AB (Rec: 11/26/19 15:17 AB [id number]) Physical Therapy Treatment Education Education Provided Precautions,Safety M7 PT-IP Assessment and Plan Start: 02/01/20 11:26 Freq: NEEDED Status: Active Protocol: Document 11/27/19 13:28 CLB (Rec: 11/27/19 14:13 CLB [id number]) PT Summary Assessment and Plan Potential Rehabilitation Potential Good Summary Impairments Pain,ROM,Strength,Balance, Cognition,Bed Mobility, Transfers,Gait,Activity Tolerance Assessment Summary Pt is SBA for all bed mobility and transfers and CGA for gait with SPC. Pt ambulated with SPC requiring CGA with decreased foot clearance and step length. Pt had difficulty sequencing use of cane with opposite leg requiring cues for proper step seqencing for safety. Pt states her home is small and is unable to use FWW . Goals Bed Mobility Goal Independent Transfer Goal Independent,Cane,Front Wheeled Walker Gait Goal Independent,Cane,Front Wheel Walker Gait Distance 200 Other Goals up/down 1 step using SPC mod I up/down 13 steps using L rail and SPC mod I Days to Meet Goals 10 Frequency of Treatment Frequency Of Treatment Twice a Day Treatment Plan Physical Therapy Treatment Plan Bed Mobility Training,Transfer Training,Gait Training, Therapeutic Exercise,Balance Retraining,Post Op Education, Discharge Planning,Hot or Cold Pack,Neuromuscular Re-ed, Coordination Retraining,Manual Therapy Other Recommendations and Next Treatment ambulation using SPC Focus Recommendations To Nursing Amount of Assist Needed 1 Person Assist Discharge Recommendations PT Discharge Recommendations Home with Assistance,Home Health Transportation Needs at Discharge Private Vehicle
--- NOTE | 2019-11-27 15:02 | CM.DPC ---
DCP Cont: Checked in with nurse, Adrianne, to see if plan is for discharge home today. She mentioned that patient is not yet ready for discharge today secondary to increased pain, and her eckert was just removed. Is hopeful for discharge home tomorrow. Referral was already sent to [facility], have face to face ready and signed. When patient is ready for discharge, will fax discharge summary, orders, and face to face to [facility]. P: DCP to continue to follow. Patient should be able to go home when she is stable, with home health. Xiao Beth RN/[employer]
[2019-11-27 15:30] VITALS: BP 132/62; PULSE 97; RESP 18; TEMP 37.7; O2SAT 91
[2019-11-27] MEDS: ATORVASTATIN 20 MG TABLET PO (20:13)
[2019-11-27] MEDS: OXYCODONE IR 5 MG TABLET 10 MG PO (20:14)
[2019-11-27 20:15] VITALS: BP 110/56; PULSE 97; RESP 16; TEMP 37.1; O2SAT 95
[2019-11-28 00:09] VITALS: BP 103/55; PULSE 87; RESP 16; TEMP 36.8; O2SAT 93
[2019-11-28 01:44] VITALS: O2SAT 94
[2019-11-28] MEDS: OXYCODONE IR 5 MG TABLET 10 MG PO (03:48)
[2019-11-28 04:05] VITALS: BP 95/54; PULSE 86; RESP 18; TEMP 37.1; O2SAT 94
[2019-11-28] MEDS: PANTOPRAZOLE 20 MG TABLET PO (06:11)
[2019-11-28] MEDS: LEVOTHYROXINE 100 MCG TABLET PO (06:11)
[2019-11-28 06:17] VITALS: BP 115/65
--- NOTE | 2019-11-28 06:19 | PC.NURSE ---
Patient declined prune juice this morning with her meds. Reminded her her last BM was the 30th. Patient states she usually goes Q 4 days, and declined offer.
--- NOTE | 2019-11-28 07:41 | PM.PNPO.1 ---
Subjective Subjective Date Patient Seen: 11/28/19 Time Patient Seen: 07:41 Interval history: She is doing great. Her dressing was changed yesterday evening but has not had any drainage since. She has been up and walking independently. Still requiring 15 mg at a time of oxycodone but no longer requiring IV medication and her pain is under good control. Exam Vital Signs (past 8 hours): - 11/28/19 00:09 11/28/19 01:44 11/28/19 04:05 Temperature 98.2 F 98.7 F Pulse Rate 87 86 Respiratory Rate 16 18 Blood Pressure 103/55 L 95/54 L Pulse Oximetry 93 94 94 11/28/19 06:17 Temperature Pulse Rate Respiratory Rate Blood Pressure 115/65 Pulse Oximetry Oxygen Delivery Method Room Air,Nasal Cannula Oxygen Flow Rate 2 Const Orientation: alert and oriented x3 Back/Spine/Pelvis Other: CDI. 5/5 motor both lower extremities except for old left footdrop Objective Labs Result Diagrams: 11/26/19 05:45 Assessment & Plan Post-op Postoperative Procedures: Procedures Operation Date: 11/25/19 07:45 Actual Procedures Side Surgeon p L2-3 and L4-5 revision instrumented fusion w/hardware removal and reinstru w/bone graft Arthur Morales MD She is doing great. Her drainage has finally stopped from her back. Her pain is under good control. We'll mobilize today with physical therapy and then send her home. Quality VTE Deep Vein Thrombosis/Pulmonary Embolism Present on Admission: No
[2019-11-28 08:11] VITALS: BP 113/59; PULSE 76; RESP 18; TEMP 36.4; O2SAT 95
[2019-11-28] MEDS: OXYCODONE IR 5 MG TABLET 15 MG PO ×2 (08:21→11:23)
[2019-11-28] MEDS: allopurinoL 100 MG TABLET PO (08:21)
[2019-11-28] MEDS: GABAPENTIN 600 MG TABLET PO (08:21)
[2019-11-28] MEDS: DULOXETINE 30 MG CAPSULE PO (08:21)
[2019-11-28] MEDS: MULTIVITAMIN 1 TABLET 1 TAB PO (08:21)
[2019-11-28] MEDS: SODIUM CHLORIDE 0.9% FLUSH 10 ML IV (08:22)
--- NOTE | 2019-11-28 08:40 | CM.DPC ---
DCP continued: EMR reviewed: CM/RN faxed D/C summary, Face to face and Orders to [facility]. CM/RN called [facility] intake to let them know that patient is being D/C home today so they are able to start care with patient. CM department will continue to follow to assist with any new D/C needs that may arise. Monae Garcia RN
--- NOTE | 2019-11-28 08:47 | PT.IPTN ---
Current Diagnoses Postlaminectomy syndrome, not elsewhere classified (11/25/19) Unspecified fracture of unspecified lumbar vertebra, subsequent encounter for fracture with nonunion (11/25/19) Arthrodesis status (11/25/19) Surgery Performed Operation Date: 11/25/19 07:45 Actual Procedures p L2-3 and L4-5 revision instrumented fusion w/hardware removal and reinstru w/bone graft - Arthur Morales MD Physical Therapy Treatment Note M2 PT-IP Current Condition Start: 11/26/19 11:26 Freq: NEEDED Status: Active Protocol: Document 11/26/19 09:53 AB (Rec: 11/26/19 11:41 AB [id number]) Physical Therapy Current Condition Current Condition Evaluation Date 11/26/19 Treatment Diagnosis s/p L2-3 ant/post fusion, L4-5 TLIF; difficulty in walking Onset Date 11/25/2019 Precautions Lumbar Precautions Log Roll,No Twisting,Limit Bending,Lifting Restriction of 10 lbs,Gait Belt above Incisional Area M3 PT-IP Subjective Start: 11/26/19 11:26 Freq: NEEDED Status: Active Protocol: Document 11/28/19 08:47 CLB (Rec: 11/28/19 09:22 CLB [id number]) Subjective Physical Therapy Visit Type Type Treatment Note Visit Start Time 08:47 Visit Stop Time 09:06 Total Visit Minutes 19 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 3 Physical Therapy Visit Comments Patient Comments pt agreeable to do PT Therapy Pain Assessment Pain When Pain Assessed During Mobility Pain Present Pain Present Pain Reported Location Lower Back Intensity 6 Scale Used Numeric (1 - 10) Pain Management Techniques Modification of Treatment,Re- positioning,Timing of Activity with Medications M4 PT-IP Mobility and Gait Start: 11/26/19 11:26 Freq: NEEDED Status: Active Protocol: Document 11/28/19 08:47 CLB (Rec: 11/28/19 09:22 CLB [id number]) PT-Bed Mobility Assessment Rolling Type of Rolling Log Rolling Level of Assist Standby Assistance Sit to Supine Sit to Supine Standby Assistance PT-Transfer Assessment Sit to and From Stand Sit to and from Stand Standby Assistance Equipment Transfer Assistive Device Gait Belt,Straight Cane Transfers Transfer Destination Bed Transfer Ability Level of Assist Standby Assistance Comments Mobility Comments Pt up in BR independently upon arrival w/FWW, GB placed on pt and SPC was handed to pt as pt tranferred ambulation device. Pt ambulated in [place] SBA with SPC with cues for sequencing opposite left step with cane in right hand. Pt then performed reverse log roll into bed SBA and was left in bed sidelying on right, bed alarm on, call light and all needs within reach. Gait Assessment Gait Gait Assistance Required: Standby Assistance Distance (Feet) 220 Able to Maintain Weight Bearing Status Yes During Gait Assistive Devices Assistive Device Gait Belt,Straight Cane Orthotic/Prosthetic Devices or Brace: No Factors Limiting Gait Function Factors Limiting Gait Function Decreased Activity Tolerance, Decreased Strength,Limited Range of Motion,Pain,Poor Balance Comments Gait Comments see mobility comments M5 PT-IP Objective Assessments Start: 11/26/19 11:26 Freq: NEEDED Status: Active Protocol: Document 11/26/19 09:53 AB (Rec: 11/26/19 11:41 AB [id number]) Orientation Orientation/Cognition Level of Alertness Alert Orientation Name,Place,Situation Memory Description No Deficits Noted Gross Range of Motion Lower Extremity ROM Assessment Within Functional Limits Strength Comments Strength Comments RLE 4-/5 LLE: 3+/5; L foot drop Coordination Assessment Gross Coordination Gross Coordination WNL Sensation Assessment Sensation Gross Sensation WNL Muscle Tone Muscle Tone WNL Yes M6 PT-IP Treatment Start: 11/26/19 11:26 Freq: NEEDED Status: Active Protocol: Document 11/28/19 08:47 CLB (Rec: 11/28/19 09:22 CLB [id number]) Physical Therapy Treatment Exercises Exercises Ankle Pumps Other Treatments Other Treatment Performed educated pt on importance of AP's. Pt refused SCD's this session. M7 PT-IP Assessment and Plan Start: 11/26/19 11:26 Freq: NEEDED Status: Active Protocol: Document 11/28/19 08:47 CLB (Rec: 11/28/19 09:22 CLB [id number]) PT Summary Assessment and Plan Potential Rehabilitation Potential Good Summary Impairments Pain,ROM,Strength,Balance, Cognition,Bed Mobility, Transfers,Gait,Activity Tolerance Assessment Summary Pt is SBA for all bed mobility and transfers. Pt improved with gait quality with SPC requiring SBA for ~220ft, pt needed verbal cues for sequencing SPC during gait. Goals Bed Mobility Goal Independent Transfer Goal Independent,Cane,Front Wheeled Walker Gait Goal Independent,Cane,Front Wheel Walker Gait Distance 200 Other Goals up/down 1 step using SPC mod I up/down 13 steps using L rail and SPC mod I Days to Meet Goals 10 Frequency of Treatment Frequency Of Treatment Twice a Day Treatment Plan Physical Therapy Treatment Plan Bed Mobility Training,Transfer Training,Gait Training, Therapeutic Exercise,Balance Retraining,Post Op Education, Discharge Planning,Hot or Cold Pack,Neuromuscular Re-ed, Coordination Retraining,Manual Therapy Recommendations To Nursing Amount of Assist Needed 1 Person Assist Discharge Recommendations PT Discharge Recommendations Home with Assistance,Home Health Transportation Needs at Discharge Private Vehicle
--- NOTE | 2019-11-28 10:30 | OT.IP.TRT ---
Current Diagnoses Postlaminectomy syndrome, not elsewhere classified (11/25/19) Unspecified fracture of unspecified lumbar vertebra, subsequent encounter for fracture with nonunion (11/25/19) Arthrodesis status (11/25/19) Surgery Performed Operation Date: 11/25/19 07:45 Actual Procedures p L2-3 and L4-5 revision instrumented fusion w/hardware removal and reinstru w/bone graft - Arthur Morales MD Occupational Therapy Treatment Note M2 OT-IP Current Condition Start: 11/27/19 14:18 Freq: Status: Active Protocol: Document 11/27/19 14:19 CGR (Rec: 11/27/19 14:36 CGR [email or web address]) Occupational Therapy Current Condition Current Condition Evaluation Date 11/27/19 Treatment Diagnosis L2-5 revision, removal of hardware and bone graft Diagnosis Onset Date 11/25/19 Post Operative Precautions Lumbar Precautions Log Roll,No Twisting,Limit Bending,Lifting Restriction of 10 lbs,Gait Belt above Incisional Area M3 OT- IP Subjective and Pain Start: 11/27/19 14:18 Freq: Status: Active Protocol: Document 11/28/19 10:31 CCC (Rec: 11/28/19 10:38 [facility] [email or web address]) OT- Subjective Occupational Therapy Visit Type Type Treatment Note Visit Start Time 09:48 Visit Stop Time 10:30 Total Visit Minutes 42 Occupational Therapy Visit Comments Patient Comments Pt wanting to get dressed as to go home today. OT Pain Assessment Pain When Pain Assessed At Rest Pain Present Pain Present Denied Pain M4 OT- IP ADL's Start: 11/27/19 14:18 Freq: Status: Active Protocol: Document 11/28/19 10:31 CCC (Rec: 11/28/19 10:38 [facility] [id number]) OT ADL-Grooming General Evaluation Grooming Ability Standby Assistance Comments OT Grooming Comments Able to stand from grooming needs. OT ADL-Oral Care General Eval Oral Care Ability Independent OT ADL-Dressing General Eval Lower Body Dressing Ability Standby Assistance Areas Needing Assistance Socks Comments OT Dressing Comments Educated and issued recher for pt to use to doff socks. 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 OT ADL-Bathing Comments OT Bathing Comments Pt states to shower at home. M5 OT- IP IADL's Start: 11/27/19 14:18 Freq: Status: Active Protocol: Document 11/27/19 14:19 CGR (Rec: 11/27/19 14:36 CGR [email or web address]) OT-Instrumental Activities of Daily Living Deficits IADL Deficits Identified Deficits Home Safety Awareness Awareness of Need for Assistance at Home Decreased Awareness Ability to Problem Solve Emergency Able to Problem Solve Situations Medication Management Medication Management No Deficits Identified Money Management Money Management No Deficits Identified Meal Preparation Meal Preparation No Deficits Identified M6 OT- IP Functional Cognition Start: 11/27/19 14:18 Freq: Status: Active Protocol: Document 11/28/19 10:31 [facility] (Rec: 11/28/19 10:38 [facility] [id number]) Cognitive Factors Limiting Selfcare Function Cognitive Ability Level of Alertness Alert Patient Orientation Name,Age,Birthday,Month,Date, Year,Day of Week,Place, Situation Attention Span Ability Capable of Focused Attention, Capable of Sustained Attention Ability to Follow Commands Able to Follow Multi-Step Commands Memory Description No Deficits Noted Safety Awareness Decreased Ability to Apply Precautions Problem Solving Ability No deficits Noted Cognitive Comments Cognitive Assessment Comments Needing occasional reminders to incorporate back precautions as pt tends to want to twist. M7 OT- IP Mobility and Balance Start: 11/27/19 14:18 Freq: Status: Active Protocol: Document 11/28/19 10:31 [facility] (Rec: 11/28/19 10:38 [facility] [email or web address]) OT-Transfer Assessment Sit to and From Stand Sit to and from Stand Standby Assistance Technique Transfer Destination Bed,Chair,Toilet Transfer Technique Stand Step Pivot Devices Transfer Assistive Devices Gait Belt,Front Wheeled Walker Comments Mobility Comments Pt uses a walking stick at home due to her home is too small for a FWW. OT- Balance Assessment Sitting Balance and Reactions Static Sitting Balance Ability Normal Dynamic Sitting Balance Ability Normal Standing Balance and Reactions Static Standing Balance Ability Good M8 OT- IP Objective Assessments Start: 11/27/19 14:18 Freq: Status: Active Protocol: Document 11/27/19 14:19 CGR (Rec: 11/27/19 14:36 CGR [email or web address]) OT Gross Range of Motion Upper Extremity Range of Motion Assessment Within Functional Limits OT Strength Upper Extremity Strength Assessment Within Functional Limits Comments Strength Comments Grossly 4/5 OT- Coordination Assessment Upper Extremity Finger to Nose Test Within Functional Limits Finger Tapping Test Within Functional Limits OT-Muscle Tone Assessment Muscle Tone WNL Yes OT Sensation Assessment Edema Edema Absent M9 OT- IP Assessment and Plan Start: 11/27/19 14:18 Freq: Status: Active Protocol: Document 11/28/19 10:31 [facility] (Rec: 11/28/19 10:38 [facility] [email or web address]) OT Summary Assessment and Plan Potential Rehabilitation Potential Excellent Analytic Complexity at Evaluation Low Summary OT Impairments Functional Mobility,Bathing, Shower Transfers Progress Towards Goals Progressing Toward Goals Assessment Summary Pt able to dress and toilet and needing occasional vc to incorporate back precautions. Pt states to have a friend stay with her initially. Pt going home today. Goals Grooming Goal Independent Dressing Goal Independent Toileting Goal Independent Bathing Goal Independent Toilet Transfer Goal Independent Shower Transfer Goal Independent Days to Meet Goals 1 Frequency of Treatment Frequency Of Treatment Once a Day Treatment Plan OT Treatment Plan Patient/Family Education, Discharge Planning Discharge Recommendations OT Discharge Recommendations Home with Assistance Home Equipment Needs shower chair Transportation Needs at Discharge Private Vehicle
--- NOTE | 2019-11-28 11:35 | PC.NURSE ---
Day shift: Dressing changed with 4 CoverSites for a more water resistant barrier. Incisions well approcimated and felicia intact. No s/s of infection. Paperwork signed and all questions answered. Pt has all personal belongings as well as MD scrips.f Medicated for back pain just prior to d/c as Pt going to [facility] and has no pain meds filled. Taken to car in by RAMYA Nguyen. Car driven by Pt's friend.
[2019-11-29 15:31] LABS: Hepatitis B Surf Ab Qualitativ Nonreactive (Nonreactive)
== END 2019-11-28 11:38 | disposition home health service (06) | DRG 454 ==
PROVIDERS: Admitting Provider Orthopaedic Surgery; Family Provider Family Medicine; PCP Family Medicine; Visit Provider Orthopaedic Surgery
PROC: 0SG00A0 Fusion of Lumbar Vertebral Joint with Interbody Fusion Device, Anterior Approach, Anterior Column, Open Approach (ICD-10-PCS; CPT 22558; principal; 2019-11-25 07:45)
DX: M48.061 Spinal stenosis, lumbar region without neurogenic claudication (principal); M96.0 Pseudarthrosis after fusion or arthrodesis; M96.1 Postlaminectomy syndrome, not elsewhere classified; I10 Essential (primary) hypertension; G89.29 Other chronic pain; M43.16 Spondylolisthesis, lumbar region; R39.198 Other difficulties with micturition
CPT/HCPCS: 36415; 72100; 76000; 81001; 85014; 85018; 87086; 94762; 97116; 97161; 97165; 97530; 97535; C1776; J0131; J0595; J1100; J1170; J2060; J2250; J2274; J2405; J2704; J3010

== ENCOUNTER → 2020-07-15 14:35 | Outpatient (CLI) | payer MEDICARE, SELFPAY ==
[2019-11-25 15:50] VITALS: BMI 28.8
[2020-07-16 14:35] LABS: COVID19 Sendout Not Detected (Not Detect)
== END ==
PROVIDERS: Family Provider Family Medicine; PCP Family Medicine; Visit Provider Physician Assistant
DX: Z11.59 Encounter for screening for other viral diseases (principal)
CPT/HCPCS: 87635

== ENCOUNTER 2020-07-18 13:55 | Day surgery (SDC) | payer MEDICARE, SELFPAY ==
[2019-11-25 15:50] VITALS: BMI 28.8
--- NOTE | 2020-07-18 | PATH_ITS ---
[facility] Accession Number: [id number] . 01 Material submitted: . PART A: gastrointestinal site - STOMACH PART B: body - NO SITE DESIGNATED . 01 Clinical history: . EGD W/POSS BX A. H. PYLORI B. EOE . 02 Diagnosis: A. Stomach, Biopsy: Body type mucosa with no diagnostic abnormality. Negative for Helicobacter by immunohistochemistry. Negative for intestinal metaplasia. Negative for dysplasia and malignancy. . B. Esophagus, Biopsy: Squamous epithelium with no diagnostic abnormality. Intraepithelial eosinophils are not increased. A PAS stain is negative for fungal organisms. Negative for dysplasia and malignancy. [facility] 07/23/2020 1723 Local . 02 Electronically signed: . Karla Pedro MD, Pathologist NPI- [id number] . 01 Gross description: . Part A: STOMACH: Received in formalin is 1 fragment(s) of castro, soft tissue measuring 0.2 x 0.2 x 0.2 cm submitted entirely in 1 cassette(s) Part B: NO SITE DESIGNATED: Received in formalin are 2 fragment(s) of castro, soft tissue measuring 0.1 x 0.1 x 0.1 cm to 0.2 x 0.2 x 0.1 cm submitted entirely in 1 cassette(s) /BARBY 07/19/2020 2045 Local . 02 Microscopic: . A. An immunohistochemical stain was performed to evaluate for Helicobacter organisms and is negative. The control stain showed appropriate reactivity. . B. An PAS stain was performed to evaluate for fungal organisms and is negative. The control stain showed appropriate reactivity. . * This test was developed and its performance characteristics determined by [employer]. It has not been cleared or approved by the U.S. Food and Drug Administration. The FDA has determined that such clearance or approval is not necessary. This test is used for clinical purposes. It should not be regarded as investigational or for research. . 02 Pathologist provided ICD-10: R13.10 . 02 CPT . 577126, 123065, 858040, G97916 Performed at: 01 [facility] [address] [id number] MD Norbert De La Cruz MD Phone: [phone] Performed at: 02 [facility] [address] [place] [id number] MD Karla Pedro MD Phone: [phone]
[2020-07-18] MEDS: LACTATED RINGERS 1,000 ML 42 ML IV (14:23)
[2020-07-18 14:24] VITALS: BP 130/85; PULSE 66; RESP 16; TEMP 36.8; O2SAT 100; BMI 29.1
--- NOTE | 2020-07-18 14:41 | PM.HP.1 ---
History of Present Illness History of Present Illness Date Patient Seen: 07/18/20 Chief complaint: EGD W/POSS BX Narrative: Dysphagia Patient History Medical History (Updated 10/27/19 @ 14:28 by Dorothea Corbin RN) Acid reflux (Acute) Acquired left foot drop (Chronic) Depression (Acute) Gout (Acute) HLD (hyperlipidemia) (Acute) HTN (hypertension) (Acute) Hypothyroid (Acute) Lumbosacral spondylosis with radiculopathy (Chronic) Tremor of both hands (Acute) Surgical History (Updated 10/27/19 @ 14:08 by Dorothea Corbin RN) History of fusion of cervical spine (Acute) History of lumbar spinal fusion (Acute ~1988) History of lumbar spinal fusion (Acute 11/30/17) S/P epidural steroid injection (Acute ~01/2019) S/P insertion of spinal cord stimulator (Acute) Status post lumbar and lumbosacral fusion by anterior technique (Chronic) Family & Social History Social History: household members none Tobacco & Substance use: Smoking Status Never smoker alcohol intake never Substance Use Type does not use Meds Home Medications and Allergies Home Medications Medication Instructions Recorded Confirmed Type allopurinol 100 mg tablet 100 mg PO DAILY 06/22/19 07/18/20 History amlodipine 10 mg tablet 10 mg PO DAILY 06/22/19 07/18/20 History gabapentin 600 mg tablet 600 mg PO TID 06/22/19 07/18/20 History omeprazole 20 mg capsule,delayed 20 mg PO DAILY 06/22/19 07/18/20 History release Excedrin Extra Strength 2 tab PO DAILY 10/27/19 07/18/20 History atorvastatin 20 mg PO BEDTIME 10/27/19 07/18/20 History levothyroxine 100 mcg PO DAILY 10/27/19 07/18/20 History multivitamin 1 cap PO DAILY 10/27/19 07/18/20 History docusate sodium [DOK] 100 mg PO BID PRN #30 cap 11/27/19 07/18/20 Rx oxycodone 10 mg PO Q4H PRN 07/18/20 07/18/20 History Allergies Allergy/AdvReac Type Severity Reaction Status Date / Time cephalexin [CEPHALEXIN] Allergy Intermediate Verified 07/15/20 14:34 clarithromycin Allergy Intermediate Verified 07/15/20 14:34 [CLARITHROMYCIN] penicillin G [PENICILLIN G] Allergy Intermediate Verified 07/15/20 14:34 pseudoephedrine Allergy Intermediate Verified 07/15/20 14:34 [From SELDANE-D] Sulfa (Sulfonamide Allergy Intermediate Verified 07/15/20 14:34 Antibiotics) [SULFA (SULFONAMIDE ANTIBIOTICS)] terfenadine [From SELDANE-D] Allergy Intermediate Verified 07/15/20 14:34 Exam Vital Signs (past 8 hours): - 07/18/20 14:24 Temperature 98.2 F Pulse Rate 66 Respiratory Rate 16 Blood Pressure 130/85 Pulse Oximetry 100 Oxygen Delivery Method Room Air Narrative Exam Narrative: Oropharynx free of lesions Chest clear to auscultation percussion Cardiac exam reveals no S3 or murmur Assessment & Plan Assessment & Plan narrative: Dysphagia rule out esophageal stricture versus dysmotility. Risks, benefits, alternatives have been explained.
--- NOTE | 2020-07-18 14:42 | PM.OP.ENDO ---
Operative Date/Time/Diagnoses Date of procedure: 07/18/20 Pre-op diagnosis: See Procedure & Clinicians Study performed: EGD Same procedure as scheduled: Yes Indications: Dysphagia Surgeon: Mariangel Btaes Procedure Notes Procedure in detail: After informed consent was obtained the patient was placed in left lateral decubitus position. The video upper scope was placed into the oropharynx and with facial nerve esophagus. The esophagus stomach and duodenum were carefully examined. On withdrawal retroflexed view the GE junction was performed. The scope was removed. The patient tolerated procedure well. Blood loss none Complications none Sedation Mac Findings 1. Somewhat rigid proximal esophagus with longitudinal furrows. Biopsies taken to rule out eosinophilic esophagitis. 2. Wide-open Schatzki's ring with significant esophagitis. This was not quite 75% of the circumference but more like 50%. 3. 2-3 cm sliding hiatal hernia 4. Striped gastric antrum biopsies taken to rule out Helicobacter 5. Normal duodenal bulb and sweep Patient is only on omeprazole 20 daily. I would suggest to heal this up that she go up to 40 b.i.d.. This will be sent in to her pharmacy. She will then return to see me in 1-2 months which could be high [employer].
[2020-07-18 15:07] VITALS: BP 103/49; PULSE 63; RESP 15; TEMP 36.3; O2SAT 95
[2020-07-18 15:12] VITALS: BP 102/49; PULSE 65; RESP 13; TEMP 36; O2SAT 96
[2020-07-18 15:18] VITALS: BP 125/69; PULSE 61; RESP 12; TEMP 36.6; O2SAT 98
[2020-07-18 15:21] VITALS: BP 130/67; PULSE 60; RESP 13; TEMP 36.3; O2SAT 98
== END 2020-07-18 15:40 | disposition home or self-care (01) ==
LOC: ENDO 13:59
PROVIDERS: Family Provider Family Medicine; PCP Family Medicine; Referring Provider Family Medicine; Visit Provider Internal Medicine Gastroenterology
PROC: 0DJ08ZZ Inspection of Upper Intestinal Tract, Via Natural or Artificial Opening Endoscopic (ICD-10-PCS; CPT 43235; principal; 2020-07-18 15:00)
DX: K22.2 Esophageal obstruction (principal); E03.9 Hypothyroidism, unspecified; I10 Essential (primary) hypertension; K44.9 Diaphragmatic hernia without obstruction or gangrene
CPT/HCPCS: 43239 ×2; J2704

== ENCOUNTER 2020-11-11 14:21 | Observation (INO) | payer MEDICARE, SELFPAY ==
[2019-11-25 15:50] VITALS: BMI 28.8
[2020-11-11] VITALS (11 sets, daily range): BP systolic 113–173; BP diastolic 59–91; PULSE 61–82; RESP 1–20; TEMP 35.7–36.5; O2SAT 93–99; BMI 29.1
--- NOTE | 2020-11-11 | DI.ECHO.S_ITS ---
[place] [facility]---------+ [facility] +---------+ : : [address] : : : : [id number] : : : : Phone: [phone] Echocardiogram Report + + :Name: MAXIMINO POLLARD Study Date: 11/12/2020 Height: 67 in : :[facility] ReadingLocation: Weight: 186 lb : : Gender: Female BSA: 2.0 m2 : :: 1945 Age: 75 yrs BP: 113/59 mmHg: :Reason For Study: HISTORY OF RHEUMATIC FEVER : :Ordering Physician: JOSESITO, : :ARIA Performed By: Loretta Toscano : :Referring: ARIA BELLAMY : + + Interpretation Summary Normal both left and right ventricle size and function. The ejection fraction is 60-65%. No valvular abnormality. Procedure: A two-dimensional transthoracic echocardiogram with color flow and Doppler was performed. The study quality was technically adequate. There is no prior echocardiogram noted for this patient. The heart rate ranged between 54-78 bpm during the study. Left Ventricle: The left ventricle is normal in size and wall thickness. The ejection fraction is estimated to be 60-65%. There are no focal wall motion abnormalities. Diastolic parameters suggest probable normal left ventricular diastolic function and normal filling pressures. Right Ventricle: The right ventricle is normal in size and function. Atria: Both atria are normal in size. There is no Doppler evidence for an interatrial shunt. Mitral Valve: The mitral valve leaflets appear borderline thickened, but open well. There is no mitral valve stenosis. There is trace mitral regurgitation. Aortic Valve: The aortic valve is trileaflet. The aortic valve opens well. There is no aortic valve stenosis. There is trace aortic regurgitation. Tricuspid Valve: The tricuspid valve is normal in structure and function. Pulmonary artery pressures cannot be estimated because of the lack of a measurable TR jet velocity but the IVC suggests a CVP of around 3 mmHg. There is trace tricuspid regurgitation. Pulmonic Valve: The pulmonic valve leaflets are thin and pliable; valve motion is normal. There is no pulmonic valvular regurgitation. Great Vessels: The aortic root is normal size. The dimensions of the ascending aorta are normal. The IVC is of normal diameter and collapses greater than 50% with a sniff. This suggests a low right atrial pressure of 3 mm Hg. Pericardium/ Pleura There is no pericardial effusion. There is no pleural effusion. MMode/2D Measurements & Calculations LVIDd: 3.8 cm LVOT diam: 2.0 cm LVIDs: 2.6 cm Ao root diam: 2.7 cm FS: 32.0 % asc Aorta Diam: 3.2 cm EPSS: 0.56 cm Ao Arch Diam (Prox Trans): 3.1 cm IVSd: 0.85 cm LVPWd: 1.1 cm LV crenshaw. diameter/BSA (cm/m^2): 2.0 LV sys. diameter/BSA (cm/m^2): 1.3 LA A2 area: 17.4 cm2 RA long axis: 4.6 cm LA A4 area: 19.8 cm2 RA area: 17.2 cm2 LA length (vol): 5.0 cm RA vol: 54.2 ml LA vol: 58.1 ml RA : 27.7 ml/m2 LA vol index: 29.6 ml/m2 IVC diam: 1.4 cm RVD1 (basal): 3.7 cm TAPSE: 2.0 cm Doppler Measurements & Calculations Ao V2 max: 150.7 cm/sec LVOT Max Cabrera: 121.8 cm/sec Ao V2 mean: 96.1 cm/sec LV V1 max P.9 mmHg Ao max P.1 mmHg LV V1 VTI: 27.6 cm Ao mean P.4 mmHg ZONIA(I,D): 2.9 cm2 Ao V2 VTI: 29.3 cm ZONIA(V,D): 2.5 cm2 sev ratio: 0.94 ZONIA indexed to BSA (cm^2/m^2): 1.5 MV E max cabrera: 77.2 cm/sec PA V2 max: 66.3 cm/sec MV A max cabrera: 97.4 cm/sec PA V2 mean: 39.6 cm/sec MV E/A: 0.79 PA mean P.77 mmHg Med Peak E' Cabrera: 6.6 cm/sec PA pr(Accel): 27.6 mmHg E/E' med: 11.8 Lat Peak E' Cabrera: 8.8 cm/sec E/E' lat: 8.8 E/e' average: 10.3 MV dec time: 0.31 sec MVA(VTI): 2.5 cm2 MV V2 mean: 54.2 cm/sec SV(LVOT): 83.7 ml MV mean P.5 mmHg MV V2 VTI: 34.0 cm Electronically signed by: Alicja Cheek on Reading Physician:11/12/2020 12:12 PM
--- NOTE | 2020-11-11 14:53 | DI.RAD.S_ITS ---
PROCEDURE: XR CHEST 1V INDICATIONS: chest pain TECHNIQUE: One view of the chest was acquired. COMPARISON: [facility], CR, XR THORACIC SPINE 2 VIEWS, 10/10/2020, 11:26. FINDINGS: Surgical changes and devices: Thoracic spine stimulator leads are seen. Lungs and pleura: An incomplete inspiratory result is noted, causing a crowded appearance to the lung markings. No focal infiltrates are seen. No pneumothorax or significant pleural effusions are seen. Mediastinum: Mediastinal contours appear normal. Heart size is at the upper limits of normal. Bones and chest wall: No suspicious bony lesions. Age-appropriate bony degenerative changes are seen. Overlying soft tissues appear unremarkable. IMPRESSION: Limited portable chest examination, without a significant cardiopulmonary abnormality identified. Postoperative and degenerative changes are seen. Dictated by: Braulio Mendoza M.D. on 11/11/2020 at 14:54 Approved by: Braulio Mendoza M.D. on 11/11/2020 at 14:56
--- NOTE | 2020-11-11 15:17 | ED_ITS ---
HPI - SOB/Dyspnea General Chief Complaint: Shortness of Breath/Dyspnea Stated Complaint: think I have heart failure Time Seen by Provider: 11/11/20 15:03 Source: patient Mode of arrival: Ambulatory Limitations: no limitations History of Present Illness HPI Narrative: 75-year-old female with history of rheumatic fever, pericarditis, hypertension hyperlipidemia significant family history of coronary artery disease presenting today with increasing shortness of breath with exertion since August she has had increasing shortness of breath which is progressively gotten worse. She complains of orthopnea stating that she sleeps with 5 pillows. She has a intermittently has lower extremity swelling which she curr ently does not. She occasionally has chest pain with exertion but currently does not have any chest pain. She denies any fever chills or cough. She is certainly speaking without any respiratory difficulty. She says she used to be able to at least VAC 1 room in the house without getting shortness of breath but now she can not even do that. MD Complaint: shortness of breath Onset (ago): month(s) Consistency/Duration: progressively worsening Relieving factors: rest and upright position Exacerbating factors: exertion Related Data Home Medications Medication Instructions Recorded Confirmed allopurinol 100 mg tablet 100 mg PO BEDTIME 06/22/19 11/11/20 amlodipine 10 mg tablet 10 mg PO DAILY 06/22/19 11/11/20 gabapentin 600 mg tablet 600 mg PO TID 06/22/19 11/11/20 omeprazole 20 mg capsule,delayed 40 mg PO BID 06/22/19 11/11/20 release Excedrin Extra Strength 2 tab PO DAILY 10/27/19 11/11/20 atorvastatin 20 mg PO BEDTIME 10/27/19 11/11/20 levothyroxine 100 mcg PO DAILY 10/27/19 11/11/20 multivitamin 1 cap PO DAILY 10/27/19 11/11/20 losartan 100 mg PO DAILY 11/11/20 11/11/20 Allergies Allergy/AdvReac Type Severity Reaction Status Date / Time cephalexin [CEPHALEXIN] Allergy Intermediate Verified 07/15/20 14:34 clarithromycin Allergy Intermediate Verified 07/15/20 14:34 [CLARITHROMYCIN] penicillin G [PENICILLIN G] Allergy Intermediate Verified 07/15/20 14:34 pseudoephedrine Allergy Intermediate Verified 07/15/20 14:34 [From SELDANE-D] Sulfa (Sulfonamide Allergy Intermediate Verified 07/15/20 14:34 Antibiotics) [SULFA (SULFONAMIDE ANTIBIOTICS)] terfenadine [From SELDANE-D] Allergy Intermediate Verified 07/15/20 14:34 Review of Systems Review of Systems Narrative: GENERAL: Denies chills, fatigue, malaise, fever, sweats, travel HEENT: Denies sinus pain, ear pain, sore throat, difficulty swallowing, neck pain RESPIRATORY: See HPI CARDIOVASCULAR: Denies chest pain, palpitations, orthopnea, edema GASTROINTESTINAL: Denies nausea, vomiting, abdominal pain, diarrhea, constipation, melena. : Denies dysuria, frequency, incontinence, hematuria, urinary retention, flank pain. MUSCULOSKELETAL: Denies weakness, joint pain, or bony pain SKIN: No rash, no erythema, no pruritus NEUROLOGIC: Denies weakness, dizziness, headache, numbness, change in speech, confusion PSYCHIATRIC: No concerning psychosocial issues. 12 point review of systems is negative except for those stated above and HPI Patient History Medical History Acid reflux Acquired left foot drop Depression Gout HLD (hyperlipidemia) HTN (hypertension) Hypothyroid Lumbosacral spondylosis with radiculopathy Tremor of both hands Surgical History History of fusion of cervical spine History of lumbar spinal fusion (~1988) History of lumbar spinal fusion (11/30/17) S/P epidural steroid injection (~01/2019) S/P insertion of spinal cord stimulator Status post lumbar and lumbosacral fusion by anterior technique Family History Mother Myocardial infarction Father Myocardial infarction Brother Myocardial infarction Sister Infection Social History household members: none Smoking Status: Never smoker alcohol intake: never Smoking Status: Never smoker Substance Use Type: does not use Exam Initial Vital Signs Initial Vital Signs: Vital Signs Temperature 97.2 F L 11/11/20 14:46 Pulse Rate 82 11/11/20 14:46 Respiratory Rate 18 11/11/20 14:46 Blood Pressure 135/67 11/11/20 14:46 Pulse Oximetry 93 11/11/20 14:46 GENERAL: Alert well-appearing 75-year-old female and in no acute distress. HEENT: Head atraumatic,EOMI, pupils reactive, face symmetric, moist mucous membranes CARDIOVASCULAR: Regular rate and rhythm without murmurs, rubs or gallops. RESPIRATORY: Breath sounds equal bilaterally, no wheezes rales or rhonchi. ABDOMEN: Soft, nontender. Normoactive bowel sounds all 4 quadrants. No guarding or rebound. EXTREMITIES: Normal range of motion, no clubbing or edema. Neurovascularly intact NEUROLOGICAL: Alert and oriented x4.Normal gait and speech. Cranial nerves II through XII grossly intact. SKIN: Warm, dry, no laceration, no petechiae, no rashes or lesions. Course Orders Ordered: ED Orders 11/11/20 14:53 XR chest 1V Stat EKG-12 Lead Stat 11/11/20 15:00 Complete Blood Count AUTO DIFF Stat Comprehensive Metabolic Panel Stat Lipase Stat NT-proBNP (BNP-Adult 18+) Stat Partial Thromboplastin Time Stat Prothrombin Time INR Stat Troponin & CK Cardiac Panel Stat 11/11/20 16:40 CT angio chest PE protocol Stat Acetaminophen (Acetaminophen 325 Mg Tablet) 650 mg PO Q6HR PRN PRN Reason: Fever/Mild Pain (1-3) Allopurinol (Allopurinol 100 Mg Tablet) 100 mg PO DAILY CHARAN Amlodipine Besylate (Amlodipine 5 Mg Tablet) 10 mg PO DAILY [facility] Aspirin (Aspirin Ec 81 Mg Tablet) 81 mg PO DAILY [facility] Atorvastatin Calcium (Atorvastatin 20 Mg Tablet) 20 mg PO BEDTIME [facility] Enoxaparin Sodium (Enoxaparin 40 Mg/0.4 Ml Syringe) 40 mg SUBCUT DAILY [facility] Gabapentin (Gabapentin 600 Mg Tablet) 600 mg PO TID [facility] Levothyroxine Sodium (Levothyroxine 100 Mcg Tablet) 100 mcg PO DAILY@0600 [facility] Losartan Potassium (Losartan 50 Mg Tablet) 100 mg PO DAILY [facility] Morphine Sulfate (Morphine 2 Mg/Ml Inj) 2 mg IV Q5MIN PRN PRN Reason: Chest Pain Naloxone HCl (Naloxone 0.4 Mg/Ml Vial) 0.2 mg IV Q2MIN PRN PRN Reason: Opiate Reversal Nitroglycerin (Nitroglycerin 0.4 Mg Sl Tab) 0.4 mg SL [id number] PRN PRN Reason: Chest Pain Ondansetron HCl (Ondansetron 4 Mg/2 Ml Inj) 4 mg IV Q8HR PRN PRN Reason: Nausea And Vomiting Oxycodone HCl (Oxycodone Ir 10 Mg Tablet) 10 mg PO Q4HR PRN PRN Reason: Pain, Severe (7-10) Pantoprazole Sodium (Pantoprazole 40 Mg Packet) 40 mg PO DAILY@0700 [facility] Discontinued Medications Aspirin (Aspirin 81 Mg Chew Tab) 324 mg PO NOW ONE Stop: 11/11/20 17:25 Last Admin: 11/11/20 17:42 Dose: 324 mg Documented by: YVETTE Dextrose/Sodium Chloride (Dextrose 5%-0.45% Ns) 1,000 mls @ 100 mls/hr IV CONT CHARAN Vital Signs Vital signs: Vital Signs - 8 hr 11/11/20 14:46 11/11/20 15:33 11/11/20 16:00 Temperature 97.2 F L Pulse Rate 82 67 66 Respiratory Rate 18 1 L 16 Blood Pressure 135/67 Pulse Oximetry 93 97 96 11/11/20 16:01 11/11/20 16:30 11/11/20 17:02 Temperature Pulse Rate 64 66 68 Respiratory Rate 19 6 L Blood Pressure 173/90 H 155/77 H Pulse Oximetry 96 95 97 MDM - SOB/Dyspnea Lab Data Attestation: I reviewed the patient's lab results. Result diagrams: 11/11/20 15:00 11/11/20 15:00 Labs: Lab Results 11/11/20 11/11/20 11/11/20 Range/Units 15:00 15:00 15:00 WBC 6.5 (4.5-11.0) X10^3/uL RBC 4.41 (4.0-5.2) X10^6/uL Hgb 14.2 (12.0-16.0) g/dL Hct 42.4 (36-46) % MCV 96.0 (80-100) fL MCH 32.2 (26-34) PG MCHC 33.6 (30-36) % RDW 13.4 (11.6-14.8) % Plt Count 311 (150-400) X10^3/uL Neut % (Auto) 64.0 (50-75) % Lymph % (Auto) 25.0 (25-40) % [place] % (Auto) 7.7 (3-14) % Eos % (Auto) 2.4 (2-4) % Baso % (Auto) 0.9 (0-2) % Neut # (Auto) 4200 (3281-2475) /uL Lymph # (Auto) 1600 (5175-4850) /uL [place] # (Auto) 500 (0-900) /uL Eos # (Auto) 200 (0-450) /uL Baso # (Auto) 100 (0-100) /uL PT 11.4 (10.1-12.7) SECONDS INR 1.0 (0.9-1.3) APTT 38 H (26.4-36.2) SECONDS Sodium 143 (137-145) mmol/L Potassium 4.0 (3.4-5.1) mmol/L Chloride 108 H (98-107) mmol/L Carbon Dioxide 31 (22-32) mmol/L BUN 22 H (7-17) mg/dL Creatinine 0.86 (0.52-1.04) mg/dL Estimated GFR > 60.0 (>60) mL/min BUN/Creatinine Ratio 25.6 H (6-22) Glucose 89 (80-110) mg/dL Calcium 9.0 (8.4-10.2) mg/dL Total Bilirubin 0.3 (0.2-1.3) mg/dL AST 23 (14-36) IU/L ALT 19 (<35) IU/L Alkaline Phosphatase 100 (38-126) U/L Total Creatine Kinase 67 (30-135) U/L CK-MB (CK-2) TNP CK-MB (CK-2) Rel Index TNP Troponin I < 0.012 (0.01-0.034) ng/mL NT-Pro-B Natriuret Pep (<125) pg/mL Total Protein 7.7 (6.3-8.2) g/dL Albumin 4.4 (3.5-5.0) g/dL Globulin 3.3 (1.7-4.1) g/dL Albumin/Globulin Ratio 1.3 (1.0-2.8) Lipase 99 (23-300) U/L 11/11/20 Range/Units 15:00 WBC (4.5-11.0) X10^3/uL RBC (4.0-5.2) X10^6/uL Hgb (12.0-16.0) g/dL Hct (36-46) % MCV (80-100) fL MCH (26-34) PG MCHC (30-36) % RDW (11.6-14.8) % Plt Count (150-400) X10^3/uL Neut % (Auto) (50-75) % Lymph % (Auto) (25-40) % [place] % (Auto) (3-14) % Eos % (Auto) (2-4) % Baso % (Auto) (0-2) % Neut # (Auto) (8974-1765) /uL Lymph # (Auto) (3882-7376) /uL [place] # (Auto) (0-900) /uL Eos # (Auto) (0-450) /uL Baso # (Auto) (0-100) /uL PT (10.1-12.7) SECONDS INR (0.9-1.3) APTT (26.4-36.2) SECONDS Sodium (137-145) mmol/L Potassium (3.4-5.1) mmol/L Chloride (98-107) mmol/L Carbon Dioxide (22-32) mmol/L BUN (7-17) mg/dL Creatinine (0.52-1.04) mg/dL Estimated GFR (>60) mL/min BUN/Creatinine Ratio (6-22) Glucose (80-110) mg/dL Calcium (8.4-10.2) mg/dL Total Bilirubin (0.2-1.3) mg/dL AST (14-36) IU/L ALT (<35) IU/L Alkaline Phosphatase (38-126) U/L Total Creatine Kinase (30-135) U/L CK-MB (CK-2) CK-MB (CK-2) Rel Index Troponin I (0.01-0.034) ng/mL NT-Pro-B Natriuret Pep 82 (<125) pg/mL Total Protein (6.3-8.2) g/dL Albumin (3.5-5.0) g/dL Globulin (1.7-4.1) g/dL Albumin/Globulin Ratio (1.0-2.8) Lipase (23-300) U/L Imaging Data Chest x-ray: Radiologist's Impression: PROCEDURE: XR CHEST 1V INDICATIONS: chest pain TECHNIQUE: One view of the chest was acquired. COMPARISON: [facility], CR, XR THORACIC SPINE 2 VIEWS, 10/10/2020, 11:26. FINDINGS: Surgical changes and devices: Thoracic spine stimulator leads are seen. Lungs and pleura: An incomplete inspiratory result is noted, causing a crowded appearance to the lung markings. No focal infiltrates are seen. No pneumothorax or significant pleural effusions are seen. Mediastinum: Mediastinal contours appear normal. Heart size is at the upper limits of normal. Bones and chest wall: No suspicious bony lesions. Age-appropriate bony degenerative changes are seen. Overlying soft tissues appear unremarkable. IMPRESSION: Limited portable chest examination, without a significant cardiopulmonary abnormality identified. Postoperative and degenerative changes are seen. Dictated by: Braulio Mendoza M.D. on 11/11/2020 at 14:54 CT scan - chest: Radiologist's Impression: PROCEDURE: CT ANGIO CHEST PE PROTOCOL INDICATIONS: Short of breath TECHNIQUE: After the administration of intravenous contrast, 2 mm thick sections acquired from the pulmonary apices to the posterior costophrenic angles. 3-dimensional maximum intensity projection (MIP) coronal and sagittal reformats were then acquired through the thorax. For radiation dose reduction, the following was used: automated exposure control, adjustment of mA and/or kV according to patient size. COMPARISON: [facility], CT, T-SPINE WITH CONTRAST, 12/20/2014, 11:08. [facility], CR, XR THORACIC SPINE 2 VIEWS, 10/10/2020, 11:26. [facility], CR, XR CHEST 1V, 11/11/2020, 15:36. FINDINGS: Image quality: Excellent. Pulmonary arteries: Pulmonary arteries are normal in size, and demonstrate no intraluminal filling defects to suggest central pulmonary embolism. Lungs and pleura: Lungs are clear. No pleural effusions or pneumothorax. Central and peripheral airways are patent. Mediastinum: Heart size is normal, without pericardial effusion. No mediastinal or hilar adenopathy. Thoracic aorta is normal in caliber and enhancement. Esophagus is normal in caliber. There is a small hiatal hernia. Bones and chest wall: No suspicious bony lesions. Age-appropriate bony degenerative changes are seen. Accentuated thoracic kyphosis is seen. Ribs and thoracic spine appear intact throughout. Thyroid gland is small in size. No axillary or supraclavicular adenopathy. Thoracic spine stimulator leads are seen posteriorly, as before. Abdomen: Visualized upper abdominal solid organs appear normal in the early arterial phase of enhancement. Lumbar fixation hardware is partially seen on the mail clerk image. IMPRESSION: Negative for pulmonary embolism. Incidental note is made of: Thoracic spine stimulator leads Small hiatal hernia Dictated by: Braulio Mendoza M.D. on 11/11/2020 at 16:12 ECG Data Attestation: I personally reviewed and interpreted this ECG as follows: Prior ECG tracings: available for review Interpretation: Normal sinus rhythm rate 63 p.r. interval 156 QRS 76 QTC 431 T- wave inversion noted in lead the 2 new from previous EKG in 1999 no other changes noted. MDM Narrative Medical decision making narrative: Patient concerns for cardiac equivalent with increasing shortness of breath with chest discomfort with significant family history. Ongoing since August and progressively getting worse although currently symptom free. I do not appreciate any severe or significant shortness of breath while in the emergency department at rest. PE study is negative. Dr. jarrell updated patient's symptoms test results agrees with observation Discharge Plan Departure Patient Disposition: Admitted as Observation Clinical Impression: Chest pain Admit Date/Time: 11/11/20 17:26 Admit Provider: Reema Jarrell
[2020-11-11 15:19] LABS: Add Manual Diff / Slide Review NO; Basophils Absolute Auto 100 /uL (0-100); Basophils Percent Auto 0.9 % (0-2); Eosinophils Absolute Auto 200 /uL (0-450); Eosinophils Percent Auto 2.4 % (2-4); Hematocrit 42.4 % (36-46); Hemoglobin 14.2 g/dL (12.0-16.0); Lymphocytes Absolute Auto 1600 /uL (1100-4500); Mean Corpuscular HGB Conc 33.6 % (30-36); Mean Corpuscular Hemoglobin 32.2 PG (26-34); Monocytes Absolute Auto 500 /uL (0-900); Monocytes Percent Auto 7.7 % (3-14); Neutrophils Absolute Auto 4200 /uL (1500-7000); Platelet Count 311 X10^3/uL (150-400); Red Blood Cell Count 4.41 X10^6/uL (4.0-5.2); Red Cell Distribution Width 13.4 % (11.6-14.8); White Blood Cell Count 6.5 X10^3/uL (4.5-11.0)
[2020-11-11 15:26] LABS: Prothrombin Time 11.4 SECONDS (10.1-12.7)
[2020-11-11 15:28] LABS: PTT Partial Thromboplastin Tim 38 SECONDS (26.4-36.2)
[2020-11-11 15:29] LABS: Alanine Aminotransferase 19 IU/L (<35); Albumin 4.4 g/dL (3.5-5.0); Albumin Globulin Ratio 1.3 (1.0-2.8); Alkaline Phosphatase 100 U/L (38-126); Aspartate Aminotransferase 23 IU/L (14-36); BUN Creatinine Ratio 25.6 (6-22); Bilirubin Total 0.3 mg/dL (0.2-1.3); Blood Urea Nitrogen 22 mg/dL (7-17); Carbon Dioxide 31 mmol/L (22-32); Chloride 108 mmol/L (98-107); Creatine Kinase 67 U/L (30-135); Estimated Glomerular Filt Rate > 60.0 mL/min (>60); Globulin 3.3 g/dL (1.7-4.1); Glucose 89 mg/dL (80-110); HEMOLYSIS < 15 (0-50); Lipase 99 U/L (23-300); Sodium 143 mmol/L (137-145); Total Protein 7.7 g/dL (6.3-8.2)
[2020-11-11 15:41] LABS: Troponin I < 0.012 ng/mL (0.01-0.034)
[2020-11-11 15:43] LABS: NT-proBNP (BNP-Adult 18+) 82 pg/mL (<125)
--- NOTE | 2020-11-11 16:40 | DI.CT.S_ITS ---
PROCEDURE: CT ANGIO CHEST PE PROTOCOL INDICATIONS: Short of breath TECHNIQUE: After the administration of intravenous contrast, 2 mm thick sections acquired from the pulmonary apices to the posterior costophrenic angles. 3-dimensional maximum intensity projection (MIP) coronal and sagittal reformats were then acquired through the thorax. For radiation dose reduction, the following was used: automated exposure control, adjustment of mA and/or kV according to patient size. COMPARISON: [facility], CT, T-SPINE WITH CONTRAST, 12/20/2014, 11:08. [facility] [place], CR, XR THORACIC SPINE 2 VIEWS, 10/10/2020, 11:26. [facility], CR, XR CHEST 1V, 11/11/2020, 15:36. FINDINGS: Image quality: Excellent. Pulmonary arteries: Pulmonary arteries are normal in size, and demonstrate no intraluminal filling defects to suggest central pulmonary embolism. Lungs and pleura: Lungs are clear. No pleural effusions or pneumothorax. Central and peripheral airways are patent. Mediastinum: Heart size is normal, without pericardial effusion. No mediastinal or hilar adenopathy. Thoracic aorta is normal in caliber and enhancement. Esophagus is normal in caliber. There is a small hiatal hernia. Bones and chest wall: No suspicious bony lesions. Age-appropriate bony degenerative changes are seen. Accentuated thoracic kyphosis is seen. Ribs and thoracic spine appear intact throughout. Thyroid gland is small in size. No axillary or supraclavicular adenopathy. Thoracic spine stimulator leads are seen posteriorly, as before. Abdomen: Visualized upper abdominal solid organs appear normal in the early arterial phase of enhancement. Lumbar fixation hardware is partially seen on the red hat linux administrator image. IMPRESSION: Negative for pulmonary embolism. Incidental note is made of: Thoracic spine stimulator leads Small hiatal hernia Dictated by: Braulio Mendoza M.D. on 11/11/2020 at 16:12 Approved by: Braulio Mendoza M.D. on 11/11/2020 at 16:15
[2020-11-11] MEDS: ASPIRIN 81 MG CHEW TAB 324 MG PO (17:42)
[2020-11-11 18:01] LABS: COVID19 -Nasal RAPID Negative (Negative)
--- NOTE | 2020-11-11 18:43 | P.HP_ITS ---
History of Present Illness History of Present Illness Date Patient Seen: 11/11/20 Chief complaint: think I have heart failure Narrative: The patient is a 75-year-old female with a history of rheumatic heart disease, hypertension, hyperlipidemia, with a strong family history of coronary disease. The patient was in her usual state of health until August when she developed progressive shortness of breath. Patient describes being very short of breath with minimal activity. She has been unable to do her house work. She notes that when she gets stressed she has to sit down because of shortness of breath. The patient had lower extremity edema. She was seen by primary care physician started on Lasix which she takes intermittently which is about once per week. She describes orthopnea. But no PND. The patient does have a history of pericarditis and denies any history of chest pain. She has had no palpitations, lightheadedness, nausea, diaphoresis. She denies any fever chills or cough. No headache. No blurred vision or double vision. She also has had no change in her weight. The patient was seen at [facility] last week for echocardiogram and stress test to evaluate this further. When she presented for the stress test it was aborted because of her shortness of breath. She was supposed to have an outpatient dobutamine echo and regular cardiac echo but that was not arranged. Because of her progressive shortness of breath she presented to the hospital for evaluation. In the emergency room she had a CT scan of her chest which was negative for pulmonary embolus, no evidence of pneumonia or infiltrates. Patient also had a chest x-ray which was unremarkable. She had an EKG which was sinus rhythm and no acute ST-T changes. Patient's proBNP was unremarkable. Patient is admitted to the hospital at this time for further evaluation of progressive shortness of breath. Patient History Medical History Acid reflux Acquired left foot drop Depression Gout HLD (hyperlipidemia) HTN (hypertension) Hypothyroid Lumbosacral spondylosis with radiculopathy Tremor of both hands Surgical History History of fusion of cervical spine History of lumbar spinal fusion (~1988) History of lumbar spinal fusion (11/30/17) S/P epidural steroid injection (~01/2019) S/P insertion of spinal cord stimulator Status post lumbar and lumbosacral fusion by anterior technique Family & Social History Family History (Updated 11/11/20 @ 18:48 by Reema Jarrell MD) Mother Myocardial infarction Father Myocardial infarction Brother Myocardial infarction Sister Infection Social History: household members none Safety & Behavioral: Feels Safe in Current Yes Environment Been Physically Hurt or No Threatened By a Person Tobacco & Substance use: Smoking Status Never smoker alcohol intake never Substance Use Type does not use Meds Home Medications and Allergies Home Medications Medication Instructions Recorded Confirmed Type allopurinol 100 mg tablet 100 mg PO DAILY 06/22/19 07/18/20 History amlodipine 10 mg tablet 10 mg PO DAILY 06/22/19 07/18/20 History gabapentin 600 mg tablet 600 mg PO TID 06/22/19 07/18/20 History omeprazole 20 mg capsule,delayed 20 mg PO DAILY 06/22/19 07/18/20 History release Excedrin Extra Strength 2 tab PO DAILY 10/27/19 07/18/20 History atorvastatin 20 mg PO BEDTIME 10/27/19 07/18/20 History levothyroxine 100 mcg PO DAILY 10/27/19 07/18/20 History multivitamin 1 cap PO DAILY 10/27/19 07/18/20 History losartan 100 mg PO DAILY 11/11/20 11/11/20 History Allergies Allergy/AdvReac Type Severity Reaction Status Date / Time cephalexin [CEPHALEXIN] Allergy Intermediate Verified 07/15/20 14:34 clarithromycin Allergy Intermediate Verified 07/15/20 14:34 [CLARITHROMYCIN] penicillin G [PENICILLIN G] Allergy Intermediate Verified 07/15/20 14:34 pseudoephedrine Allergy Intermediate Verified 07/15/20 14:34 [From SELDANE-D] Sulfa (Sulfonamide Allergy Intermediate Verified 07/15/20 14:34 Antibiotics) [SULFA (SULFONAMIDE ANTIBIOTICS)] terfenadine [From SELDANE-D] Allergy Intermediate Verified 07/15/20 14:34 Review of Systems Review of Systems Narrative: Numbness on the left side of the body, left footdrop, weakness in the left upper extremity ROS: Yes All systems reviewed with the patient and are negative except as otherwise documented Exam Vital Signs (past 8 hours): - 11/11/20 14:46 11/11/20 15:33 11/11/20 16:00 Temperature 97.2 F L Pulse Rate 82 67 66 Respiratory Rate 18 1 L 16 Blood Pressure 135/67 Pulse Oximetry 93 97 96 11/11/20 16:01 11/11/20 16:30 11/11/20 17:02 Temperature Pulse Rate 64 66 68 Respiratory Rate 19 6 L Blood Pressure 173/90 H 155/77 H Pulse Oximetry 96 95 97 11/11/20 17:30 Temperature Pulse Rate 61 Respiratory Rate 20 Blood Pressure Pulse Oximetry 97 Oxygen Delivery Method Room Air Narrative Exam Narrative: Delightful 75-year-old female resting in bed without any respiratory distress HEENT: Normocephalic atraumatic, extraocular muscles are intact, oropharynx is clear with moist mucous membranes neck is supple without adenopathy thyromegaly or JVD Lungs: Decreased breath sounds but clear to auscultation, no rhonchi crackles or wheezes Cardiac exam: Regular rate and rhythm normal S1-S2 with a 2/6 systolic ejection murmur Abdomen: Soft nontender nondistended without hepatosplenomegaly Extremities: No edema Neuro exam: Cranial nerves 2-12 are intact, strength is 3/5 in the left upper extremity 4/5 in the left lower extremity sensation decreased in the left lower extremity reflexes are brisk in the Skin exam: No lesion Psychiatric exam: Patient is awake alert appropriate, answers questions appropriately, no hallucinations, no delusions, no unusual will take Objective Labs Result Diagrams: 11/11/20 15:00 11/11/20 15:00 Labs: Laboratory Results - last 24 hr 11/11/20 11/11/20 11/11/20 15:00 15:00 15:00 WBC 6.5 RBC 4.41 Hgb 14.2 Hct 42.4 MCV 96.0 MCH 32.2 MCHC 33.6 RDW 13.4 Plt Count 311 Neut % (Auto) 64.0 Lymph % (Auto) 25.0 [place] % (Auto) 7.7 Eos % (Auto) 2.4 Baso % (Auto) 0.9 Neut # (Auto) 4200 Lymph # (Auto) 1600 [place] # (Auto) 500 Eos # (Auto) 200 Baso # (Auto) 100 PT 11.4 INR 1.0 APTT 38 H Sodium 143 Potassium 4.0 Chloride 108 H Carbon Dioxide 31 BUN 22 H Creatinine 0.86 Estimated GFR > 60.0 BUN/Creatinine Ratio 25.6 H Glucose 89 Calcium 9.0 Total Bilirubin 0.3 AST 23 ALT 19 Alkaline Phosphatase 100 Total Creatine Kinase 67 CK-MB (CK-2) TNP CK-MB (CK-2) Rel Index TNP Troponin I < 0.012 NT-Pro-B Natriuret Pep Total Protein 7.7 Albumin 4.4 Globulin 3.3 Albumin/Globulin Ratio 1.3 Lipase 99 SARS-CoV-2 (PCR) 11/11/20 11/11/20 15:00 17:40 WBC RBC Hgb Hct MCV MCH MCHC RDW Plt Count Neut % (Auto) Lymph % (Auto) [place] % (Auto) Eos % (Auto) Baso % (Auto) Neut # (Auto) Lymph # (Auto) [place] # (Auto) Eos # (Auto) Baso # (Auto) PT INR APTT Sodium Potassium Chloride Carbon Dioxide BUN Creatinine Estimated GFR BUN/Creatinine Ratio Glucose Calcium Total Bilirubin AST ALT Alkaline Phosphatase Total Creatine Kinase CK-MB (CK-2) CK-MB (CK-2) Rel Index Troponin I NT-Pro-B Natriuret Pep 82 Total Protein Albumin Globulin Albumin/Globulin Ratio Lipase SARS-CoV-2 (PCR) Negative Assessment & Plan Assessment & Plan narrative: Impression 1. 75-year-old female admitted to the hospital for progressive dyspnea on exertion -patient with a very strong family history of coronary disease, she has had her both parents who prematurely with coronary disease and her brother had an MN as well -patient has cardiac risk factors to include hypertension and hyperlipidemia -she describes lower extremity edema, and history of rheumatic heart disease -differential diagnosis includes cardiac ischemia, congestive heart failure, interstitial lung disease, valvular heart disease -proBNP 82, chest x-ray negative, CT angio no PE -plans for cardiac echo to evaluate valvular function -will order Lexiscan tomorrow to rule out coronary ischemia -will continue aspirin, and statin -will check lipid profile -patient to be placed on DVT prophylaxis 2. Hypertension -continue amlodipine 3. Hyperlipidemia -check fasting lipid profile, and continue atorvastatin for now 4. Neuropathy -continue gabapentin 5. GERD -continue PPI 6. History of kidney stone -will continue allopurinol Patient is a full code will note that her record accordingly Patient is admitted under observation status at this time.
[2020-11-11 19:32] LABS: Cholesterol 234 mg/dL (140-199); HDL Cholesterol 73 mg/dL (40-60); LDL Cholesterol Calculated 130 mg/dL (<100); Triglycerides 157 mg/dL (35-150)
[2020-11-11 19:44] LABS: Troponin I < 0.012 ng/mL (0.01-0.034)
[2020-11-11] MEDS: ATORVASTATIN 20 MG TABLET PO (20:10)
[2020-11-11] MEDS: GABAPENTIN 600 MG TABLET PO (20:10)
[2020-11-11] MEDS: dilTIAZem SR 60 MG PO (20:10)
[2020-11-11 20:55] LABS: Magnesium 1.9 mg/dL (1.6-2.3)
[2020-11-11] MEDS: TRAZODONE 100 MG TABLET PO (22:23)
[2020-11-12] MEDS: OXYCODONE IR 10 MG TABLET PO ×4 (00:27→15:43)
[2020-11-12 02:00] VITALS: BP 99/53; PULSE 53; RESP 18; O2SAT 90
[2020-11-12 02:02] VITALS: BP 113/61; PULSE 60; RESP 18; O2SAT 92
--- NOTE | 2020-11-12 02:16 | PC.NURSE ---
0100 Pt was up to use the restroom with assistance. Heart rate got up to 170bpm with exertion. Once resting in bed, her heart rate slowly but steadily went back down to 70s; oxygen saturation at 97%. Pt denies SOB, denies chest pain. States she's got a headache that she's had for most the afternoon that starts at her left oriental orthodox and wraps around to posterior. 0140 Received call from ICU, patient's heart rate now in the 40s, lowest reading at 40bmp. Checked on patient; she is resting in bed, calmly. States she suddenly felt nauseous just before I came in to check on her, but it had subsided. Still has a headache, declined tylenol. BP 99/53, Oxygen saturation 92%. 0200 Oxygen is now de-saturating and is at 88%. Administering 1.5L of oxygen supplementation via NC. Oxygen improved at 92%. 0205 COMFORT Muller, notified of the above. Will continue to monitor. No further orders.
[2020-11-12 03:03] LABS: Add Manual Diff / Slide Review NO; Basophils Absolute Auto 100 /uL (0-100); Basophils Percent Auto 0.7 % (0-2); Eosinophils Absolute Auto 200 /uL (0-450); Eosinophils Percent Auto 2.2 % (2-4); Hematocrit 38.2 % (36-46); Hemoglobin 12.7 g/dL (12.0-16.0); Lymphocytes Absolute Auto 1900 /uL (1100-4500); Lymphocytes Percent Auto 25.7 % (25-40); Mean Corpuscular HGB Conc 33.3 % (30-36); Mean Corpuscular Volume 95.9 fL (80-100); Monocytes Absolute Auto 600 /uL (0-900); Monocytes Percent Auto 7.9 % (3-14); Neutrophils Absolute Auto 4700 /uL (1500-7000); Neutrophils Percent Auto 63.5 % (50-75); Platelet Count 286 X10^3/uL (150-400); Red Blood Cell Count 3.99 X10^6/uL (4.0-5.2); Red Cell Distribution Width 13.6 % (11.6-14.8); White Blood Cell Count 7.4 X10^3/uL (4.5-11.0)
[2020-11-12 03:07] LABS: Blood Urea Nitrogen 20 mg/dL (7-17); Calcium 9.1 mg/dL (8.4-10.2); Carbon Dioxide 31 mmol/L (22-32); Chloride 107 mmol/L (98-107); Estimated Glomerular Filt Rate > 60.0 mL/min (>60); Glucose 122 mg/dL (80-110); HEMOLYSIS < 15 (0-50); Potassium 3.8 mmol/L (3.4-5.1); Sodium 139 mmol/L (137-145)
[2020-11-12 03:17] LABS: NT-proBNP (BNP-Adult 18+) 78 pg/mL (<125)
[2020-11-12 03:20] LABS: Troponin I < 0.012 ng/mL (0.01-0.034)
[2020-11-12 04:37] VITALS: BP 112/60; PULSE 64; RESP 18; TEMP 36.5; O2SAT 94
[2020-11-12 08:00] VITALS: BP 110/60; PULSE 58; RESP 20; TEMP 36.3; O2SAT 93
[2020-11-12] MEDS: LEVOTHYROXINE 100 MCG TABLET PO (08:20)
[2020-11-12] MEDS: LOSARTAN 50 MG TABLET 100 MG PO (08:20)
[2020-11-12] MEDS: ENOXAPARIN 40 MG/0.4 ML SYRINGE SUBCUT (08:20)
[2020-11-12] MEDS: GABAPENTIN 600 MG TABLET PO ×2 (08:20→14:31)
[2020-11-12] MEDS: ASPIRIN EC 81 MG TABLET PO (08:20)
[2020-11-12] MEDS: dilTIAZem SR 60 MG PO (08:26)
[2020-11-12] MEDS: PANTOPRAZOLE 40 MG **PACKET PO (08:32)
--- NOTE | 2020-11-12 10:05 | PC.NURSE ---
Day shift: Pt off unit at approx 1000 for 1st part of stress test.
--- NOTE | 2020-11-12 10:32 | PC.NURSE ---
Day shift: Pt back on unit at approx 1030. She is also NPO at this time. Will put order in for that now. Pt back to bed and comfortable.
--- NOTE | 2020-11-12 10:42 | PC.NURSE ---
Day shift: Pt back on tele at this time (1040).
--- NOTE | 2020-11-12 12:45 | PC.NURSE ---
Day shift: Pt off unit for 2nd part of stress test at (1245). Off tele as well.
--- NOTE | 2020-11-12 13:15 | PM.TREADMILL ---
Cardiac Stress Test Report Referral & Results Date Patient Seen: 11/12/20 Time Patient Seen: 13:16 Requesting provider: Reema Jarrell Indication: I think I have heart failure Rest ECG: sinus rhythm Procedure Note: After Lexiscan injection, had minimal dyspnea; no chest discomfort No significatn ST changes on ECG after Lexiscan injection Occasional PVCs Impression: Normal Lexiscan stress test Please note: Actual ECG tracings can be found in the PACS system.
--- NOTE | 2020-11-12 13:49 | PC.NURSE ---
Day shift: Pt remains off AC unit at this time (1350).
--- NOTE | 2020-11-12 14:18 | PC.NURSE ---
Day shift: Pt back on AC unit at approx 1420. Pt was NPO will order HH diet for her now. No longer NPO.
[2020-11-12] MEDS: ACETAMINOPHEN 325 MG TABLET 650 MG PO (14:31)
--- NOTE | 2020-11-12 14:43 | CM.DANOTE ---
Patient is a 75 year old female who was admitted on 11/11/20 for Heart Problems. Pt has [facility] for insurance and her PCP is Dr. Arthur Slaughter. EMR was reviewed. Per MD, pt with progressive SOB dyspnea and currently on 1L Oxygen and likely consulting the Instrument Repairer. Pt with Echo and Stress Test ordered and pending. SW met bedside with pt and explained role and she confirms she still lives in [place] in an apt alone but is active with her hoahaoism and independent at baseline. Her son and dtr inlaw live in [place] and her oldest son lives down [facility] as well and her Dtr lives in [place] but comes up to visit and is her DPOA. Pt had lumbar surgery a year ago in Oct 2019 and was able to d/c home with Emilee ORTIZ and has supportive good friend and her hoahaoism members who have assisted her when needed. Pt does not anticipate any discharge needs and preference is home via her friend's POV and hoahaoism support. Plan: SW to follow closely after Echo and Stress test results to confirm safe plan of home with friend support. JENNIFER Hillman Discharge Planning/Care Management CM Discharge Assessment Start: 11/12/20 14:41 Freq: Status: Active Protocol: Document 11/12/20 14:41 BF (Rec: 11/12/20 14:43 BF [id number]) Discharge Planning Assessment Assigned Visual Inspector JENNIFER Weller DPOA/Assigned Designee Name Dtr in [place] Advance Directives? Yes Advance Directives on File No History Provided By Patient,Medical Record Has Patient been admitted in last 30 No days? Prior Living Arrangements Apartment/Condo Household Members none Type of transporation used prior to Relies on Others admit Independent with ADL's Yes Is patient alert and oriented? Yes Caregiver for Another No Barriers to Discharge No Discharge Plan Home Transportation Arrangement Friend Whiteboard Updated in Patient Room with Yes name and ext. # of Visual Inspector Review Status In Process Please Provide Date Initial DC 11/12/20 Assessment Was Performed Next Review Type Continued Stay Review
[2020-11-12 15:48] LABS: Troponin I < 0.012 ng/mL (0.01-0.034)
[2020-11-12 15:49] VITALS: BP 95/53; PULSE 74; RESP 16; TEMP 36.2; O2SAT 91
--- NOTE | 2020-11-12 17:05 | PC.NURSE ---
Addendum entered by Cinda Brooks R.N. 11/12/20 19:28: Pt HL discontinued intact. D/C instructions given w/understanding. Pt escorted by staff to waiting vehicle. Pt discharged in stable condition. Original Note: Pt A/O Med @ 1545 for back discomfort, w/good relief. SpO2 98% RA Tele shoowing NSR per ICU staff. in to see, pt will be discharging home this evening. Call light w/in reach, Pt calls appropriately for needs.
--- NOTE | 2020-11-12 17:05 | PM.DS.1 ---
History of Present Illness History of Present Illness Chief complaint: think I have heart failure Narrative: The patient is a 75-year-old female with a history of rheumatic heart disease, hypertension, hyperlipidemia, with a strong family history of coronary disease. The patient was in her usual state of health until August when she developed progressive shortness of breath. Patient describes being very short of breath with minimal activity. She has been unable to do her house work. She notes that when she gets stressed she has to sit down because of shortness of breath. The patient had lower extremity edema. She was seen by primary care physician started on Lasix which she takes intermittently which is about once per week. She describes orthopnea. But no PND. The patient does have a history of pericarditis and denies any history of chest pain. She has had no palpitations, lightheadedness, nausea, diaphoresis. She denies any fever chills or cough. No headache. No blurred vision or double vision. She also has had no change in her weight. The patient was seen at [facility] last week for echocardiogram and stress test to evaluate this further. When she presented for the stress test it was aborted because of her shortness of breath. She was supposed to have an outpatient dobutamine echo and regular cardiac echo but that was not arranged. Because of her progressive shortness of breath she presented to the hospital for evaluation. In the emergency room she had a CT scan of her chest which was negative for pulmonary embolus, no evidence of pneumonia or infiltrates. Patient also had a chest x-ray which was unremarkable. She had an EKG which was sinus rhythm and no acute ST-T changes. Patient's proBNP was unremarkable. Patient is admitted to the hospital at this time for further evaluation of progressive shortness of breath. Discharge Providers Provider Date of admission: 11/11/20 17:26 Discharge Date: 11/12/20 Primary care physician: Arthur Slaughter DO Discharge provider: Reema Jarrell MD Summary Hospital Course Discharge Diagnosis: 1. Supraventricular tachycardia 2. Hyperlipidemia 3. Normal echo with no valvular abnormality 4. Stress test no wall motion abnormality, high ejection fraction no evidence of ischemia 5. Hypothyroidism 6. GERD Hospital Course: The patient is a 75-year-old female who was admitted to the hospital for dyspnea on exertion. She denied any chest pain. It she reported orthopnea. The patient does have intermittent lower extremity edema. Patient was admitted and ruled out for myocardial infarction. It she was hooked up to telemetry and quickly it became obvious that the patient had supraventricular tachycardia with a heart rate up to 180s. She was placed on Cardizem CD 60 mg twice daily. She had no further supraventricular tachycardia. Her heart rate improved to around 58. The patient had a cardiac echo which showed no abnormalities no valvular dysfunction. She underwent a stress test which showed no wall motion abnormalities. The case was discussed with Dr. Barba. He recommended utilizing low-dose metoprolol 12.5 twice daily for control of her SVT. In addition he recommended outpatient ZIO patch for 2 weeks to evaluate for further arrhythmias patient was deemed appropriate for discharge and discharged home. Status at Discharge Cognitive/behavioral status at discharge: oriented Functional status at discharge: independent ambulation Overall status at discharge: patient is back to baseline Time Spent with Patient Time spent: Less than 30 minutes Exam Vital Signs (past 8 hours): - 11/12/20 15:49 Temperature 97.1 F L Pulse Rate 74 Respiratory Rate 16 Blood Pressure 95/53 L Pulse Oximetry 91 Oxygen Delivery Method Room Air Oxygen Flow Rate 0 Narrative Exam Narrative: Pleasant female resting comfortably in no obvious distress Lungs: Clear to auscultation Cardiac exam: Regular rate and rhythm normal S1-S2 Abdomen: Soft nontender nondistended Extremities: No edema Objective Labs Result Diagrams: 11/12/20 02:50 11/12/20 02:50 Labs: Laboratory Results - last 24 hr 11/11/20 11/11/20 11/11/20 17:10 17:40 19:10 WBC RBC Hgb Hct MCV MCH MCHC RDW Plt Count Neut % (Auto) Lymph % (Auto) [place] % (Auto) Eos % (Auto) Baso % (Auto) Neut # (Auto) Lymph # (Auto) [place] # (Auto) Eos # (Auto) Baso # (Auto) Sodium Potassium Chloride Carbon Dioxide BUN Creatinine Estimated GFR BUN/Creatinine Ratio Glucose Calcium Magnesium 1.9 Troponin I < 0.012 NT-Pro-B Natriuret Pep Triglycerides Cholesterol LDL Cholesterol, Calc HDL Cholesterol SARS-CoV-2 (PCR) Negative 11/11/20 11/12/20 11/12/20 19:10 02:50 02:50 WBC 7.4 RBC 3.99 L Hgb 12.7 Hct 38.2 MCV 95.9 MCH 32.0 MCHC 33.3 RDW 13.6 Plt Count 286 Neut % (Auto) 63.5 Lymph % (Auto) 25.7 [place] % (Auto) 7.9 Eos % (Auto) 2.2 Baso % (Auto) 0.7 Neut # (Auto) 4700 Lymph # (Auto) 1900 [place] # (Auto) 600 Eos # (Auto) 200 Baso # (Auto) 100 Sodium Potassium Chloride Carbon Dioxide BUN Creatinine Estimated GFR BUN/Creatinine Ratio Glucose Calcium Magnesium Troponin I < 0.012 NT-Pro-B Natriuret Pep Triglycerides 157 H Cholesterol 234 H LDL Cholesterol, Calc 130 H HDL Cholesterol 73 H SARS-CoV-2 (PCR) 11/12/20 11/12/20 02:50 15:00 WBC RBC Hgb Hct MCV MCH MCHC RDW Plt Count Neut % (Auto) Lymph % (Auto) [place] % (Auto) Eos % (Auto) Baso % (Auto) Neut # (Auto) Lymph # (Auto) [place] # (Auto) Eos # (Auto) Baso # (Auto) Sodium 139 Potassium 3.8 Chloride 107 Carbon Dioxide 31 BUN 20 H Creatinine 0.77 Estimated GFR > 60.0 BUN/Creatinine Ratio 26.0 H Glucose 122 H Calcium 9.1 Magnesium Troponin I < 0.012 NT-Pro-B Natriuret Pep 78 Triglycerides Cholesterol LDL Cholesterol, Calc HDL Cholesterol SARS-CoV-2 (PCR) [facility] Medical History Acid reflux Acquired left foot drop Depression Gout HLD (hyperlipidemia) HTN (hypertension) Hypothyroid Lumbosacral spondylosis with radiculopathy Tremor of both hands Surgical History History of fusion of cervical spine History of lumbar spinal fusion (~1988) History of lumbar spinal fusion (11/30/17) S/P epidural steroid injection (~01/2019) S/P insertion of spinal cord stimulator Status post lumbar and lumbosacral fusion by anterior technique Family History Mother Myocardial infarction Father Myocardial infarction Brother Myocardial infarction Sister Infection Social History household members: none Smoking Status: Never smoker alcohol intake: never Discharge Assessment & Plan Assessment and Plan Assessment: 1. Supraventricular tachycardia 2. Hyperlipidemia Number hypertension 4. Hypothyroid Plan of Treatment: Discharge plan with medications as prescribed Follow-up with PCP next week ZIO patch as an outpatient Discharge Plan Discharge Plan Patient Disposition: Home Discharge orders & Medications Prescriptions: New atorvastatin 40 mg tablet 40 mg PO BEDTIME Qty: 30 RF: 0 metoprolol succinate 25 mg tablet extended release 24 hr 12.5 mg PO BID Qty: 60 RF: 0 Continued multivitamin Capsule 1 cap PO DAILY RF: 0 Excedrin Extra Strength 250-250-65 mg Tablet 2 tab PO DAILY RF: 0 levothyroxine 100 mcg Capsule 100 mcg PO DAILY RF: 0 losartan 100 mg Tablet 100 mg PO DAILY RF: 0 trazodone 100 mg Tablet 100 mg PO BEDTIME RF: 0 allopurinol 100 mg tablet 100 mg PO BEDTIME RF: 0 omeprazole 20 mg capsule,delayed release(DR/EC) 40 mg PO BID RF: 0 gabapentin 600 mg tablet 600 mg PO TID RF: 0 Discontinued atorvastatin 20 mg Tablet 20 mg PO BEDTIME RF: 0 amlodipine 10 mg tablet 10 mg PO DAILY RF: 0 Follow up/Referrals: Arthur Slaughter DO [Primary Care Provider] - Discharge Health Status Multidrug resistant organism: No MDRO Diet/Activity/Treatments Diet: Low-fat and Low-sodium Activity: as tolerated Discharge Data Primary Care Provider: Arthur Slaughter Attending Provider: Reema Jarrell VTE Deep Vein Thrombosis/Pulmonary Embolism Present on Admission: No
--- NOTE | 2020-11-12 17:37 | DI.NM.S_ITS ---
DATE OF SERVICE: 11/11/2020 PROCEDURE PERFORMED: Pharmacologic vasodilator stress and rest myocardial perfusion imaging with gating to assess ejection fraction and regional wall motion. ORDERING PROVIDER: Dr. Reema Jarrell. INDICATIONS: The patient is a 75-year-old female admitted with progressive exertional dyspnea and found to have a brief SVT. PHARMACOLOGIC STRESS: Per protocol, 0.4 mg of regadenoson was infused with a normal heart rate and blood pressure response. She had no chest discomfort. Her resting ECG shows sinus rhythm with normal ST segments. With stress, there are no ST-segment shifts. There were no concerning arrhythmias. Per protocol, 26.2 millicuries of technetium-99m Myoview was injected and she was imaged 30 minutes later using a gated SPECT acquisition protocol. Earlier in the day while at rest, she had been injected with 12.2 millicuries of technetium-99m Myoview and was imaged 30 minutes later, again using a gated SPECT protocol. FINDINGS: 1. Raw data: There is marginal image quality with prominent breast shadows noted. While the lung/heart ratio was mildly elevated at 0.45, this is not clearly evident visually. The TID ratio was normal at 0.88. 2. Quantitated gated SPECT: Post-stress ejection fraction is estimated at 88% without any focal wall motion abnormality and specifically the anterior wall and anterior apex have brisk contractility. The resting ejection fraction is 81% with a resting end-diastolic volume of 90 mL. 3. Post stress supine images show a fairly normal perfusion pattern with the exception of a moderate perfusion defect in the very distal anterior wall and anteroapex in a pattern that could be consistent with breast attenuation artifact, supported by its complete resolution on the prone images. The resting images show a similar perfusion pattern without any clear areas of improvement. IMPRESSION: 1. Probable normal myocardial perfusion study. 2. Small fixed perfusion defect of the distal anterior wall and anteroapex that completely resolves on prone imaging, most consistent with breast attenuation artifact. While previous nontransmural infarction cannot be entirely excluded, this is unlikely given the normal prone imaging and the absence of any wall motion abnormality in that distribution. There is no evidence for ischemia. 3. Normal left ventricular systolic function without any focal wall motion abnormality. While the lung/heart ratio is mildly elevated at 0.45, which can be a sign of pulmonary congestion, this is not evident visually. Clinical correlation is needed. 4. No angina or ECG evidence of ischemia with pharmacologic vasodilator stress. There were no arrhythmias. SurajMonae aly - ETSSIE/ashley/jabier doc#: [id number]/job#: [id number] dd: 11/12/2020 16:42:00 dt: 11/12/2020 17:25:00 DICTATING MD/COPIES TO: Obey Barba MD; Reema Jarrell MD COPIES MNE: KEYSHAWN;
== END 2020-11-12 19:00 | disposition home or self-care (01) ==
LOC: ED 17:25 → AC 17:27
PROVIDERS: Nurse Practitioner Family; Admitting Provider Internal Medicine; Emergency Provider Emergency Medicine; Family Provider Family Medicine; PCP Family Medicine; Referring Provider Emergency Medicine; Visit Provider Internal Medicine
DX: I47.1 Supraventricular tachycardia (principal); R06.02 Shortness of breath; I10 Essential (primary) hypertension; E78.5 Hyperlipidemia, unspecified; G62.9 Polyneuropathy, unspecified; E03.9 Hypothyroidism, unspecified; K21.9 Gastro-esophageal reflux disease without esophagitis; Z20.822 Contact with and (suspected) exposure to COVID-19
CPT/HCPCS: 36415; 71045; 71275; 78452; 80048; 80053; 80061; 82550; 83690; 83735; 83880; 84484; 85025; 85610; 85730; 87635; 93005; 93017; 93306; 94762; 96372; 99284; C9803; G0378; A9502; J1650; J2785

== ENCOUNTER → 2023-02-13 09:22 | Outpatient (CLI) | payer OTHER, SELFPAY ==
[2020-11-11 18:52] VITALS: BMI 29.1
--- NOTE | 2023-02-13 | DI.RAD.S_ITS ---
PROCEDURE: FL UPPER GI W AIR INDICATIONS: Dysphagia, unspecified COMPARISON: [facility], CR, XR SWALLOWING EVAL WITH SPEECH, 10/14/2021, 14:26. FINDINGS: KUB: Preprocedural cash sales audit clerk film demonstrates a normal bowel gas pattern. No suspicious abdominal calcifications. Visualized solid organ contours appear normal. Bony structures appear unremarkable. Partially imaged lumbar spinal fusion hardware. Thoracic spine neurostimulator device and electrodes/leads are present. Esophagus: Esophageal mucosa is normal on air-contrast views. On single-contrast views, there is abnormal esophageal peristalsis with numerous episodes of tertiary contractions resulting in delayed and retrograde flow of ingested oral contrast. No strictures, extrinsic mass effects, or diverticula. There is a small-moderate sized hiatal hernia. No elicited gastroesophageal reflux. There is normal transit of a calibrated barium tablet through the esophagus. Stomach: The stomach is normally distensible, with normal rugal fold thickness. No mucosal masses or ulcers. Pylorus and duodenal bulb appear normal in morphology. Duodenal folds are normal in thickness as well. IMPRESSION: 1. Multiple episodes of tertiary contractions resulting in delayed and retrograde flow of ingested oral contrast. 2. Small-moderate sized hiatal hernia. 3. Consider further evaluation with direct visualization if not already accomplished. Dictated by: Lázaro Kapoor M.D. on 02/13/2023 at 21:51 Approved by: Lázaro Kapoor M.D. on 02/13/2023 at 21:55
== END ==
PROVIDERS: Family Provider Family Medicine; PCP Family Medicine; Referring Provider Internal Medicine Gastroenterology; Visit Provider Internal Medicine Gastroenterology
DX: R13.10 Dysphagia, unspecified (principal); R05.3 Chronic cough; K21.9 Gastro-esophageal reflux disease without esophagitis; K44.9 Diaphragmatic hernia without obstruction or gangrene
CPT/HCPCS: 74246

== ENCOUNTER → 2023-05-05 14:11 | Outpatient (CLI) | payer OTHER, SELFPAY ==
[2020-11-11 18:52] VITALS: BMI 29.1
--- NOTE | 2023-05-05 14:18 | DI.CT.S_ITS ---
PROCEDURE: CT SINUS SCREEN WO CON INDICATIONS: Chronic pansinusitis TECHNIQUE: Noncontrast 3.0 mm axial images acquired from the frontal sinuses to the mid-sella, with coronal and sagittal reformats. For radiation dose reduction, the following was used: automated exposure control, adjustment of mA and/or kV according to patient size. COMPARISON: [facility], CT, HEAD W&WO CONTRAST, 08/22/2014, 10:28. FINDINGS: Image quality: Excellent. Maxillary Sinuses: No bony remodeling or destruction. There is mild mucosal thickening seen involving the inferior maxillary sinuses, right worse than left. Ethmoid Air Cells: No bony remodeling or destruction. Sinuses are clear. Sphenoid Sinuses: No bony remodeling or destruction. Sinuses are clear. Frontal Sinuses: No bony remodeling or destruction. Sinuses are clear. Ostiomeatal Complexes: Ostiomeatal complexes are patent. No Sis cells. Miscellaneous: Visualized intra-orbital contents are normal. No ashtyn bullosa or paradoxical turbinate curvature. There is mild S shaped nasal septal deviation. IMPRESSION: Focal mild mucosal thickening can be seen within the inferior maxillary sinuses, right worse than left. Dictated by: Braulio Mendoza M.D. on 05/05/2023 at 15:03 Approved by: Braulio Mendoza M.D. on 05/05/2023 at 15:05
== END ==
PROVIDERS: Family Provider Family Medicine; PCP Family Medicine; Referring Provider Otolaryngology; Visit Provider Otolaryngology
DX: J32.4 Chronic pansinusitis (principal)
CPT/HCPCS: 70486